=== PATIENT | male | born 1955 | race Caucasian/White ===

== ENCOUNTER 2017-05-16 11:40 | Emergency (ER) | payer OTHER ==
--- NOTE | 2017-05-16 12:21 | EDM.PDOC ---
ED HPI GENERAL MEDICAL PROBLEM - General Chief Complaint: Upper Extremity Injury/Pain Stated Complaint: LEFT SHOULDER PAIN Time Seen by Provider: 05/16/17 12:20 Source of Information: Reports: Patient History Limitations: Reports: No Limitations - History of Present Illness INITIAL COMMENTS - FREE TEXT/NARRATIVE: HISTORY AND PHYSICAL: History of present illness: Patient is a 61-year-old male who presents to the emergency room with complaints of muscular pain to the trapezius into the right shoulder. He states yesterday he was playing cards when he felt a sharp cramping pain which was alleviated with pressure on his hand. Does have a history of a torn rotator cuff which she normally receives cortisone injections for. He denies any recent injury or falls. Tried to get into Dr. Waylon Sanchez's clinic, but reports he is unable to get in for 2 weeks. Been using Tylenol, Motrin and Midol over-the- counter with minimal relief. Last saw Dr. Marta Good May 2016. Review of systems: As per history of present illness and below otherwise all systems reviewed and negative. Past medical history: As per history of present illness and as reviewed below otherwise noncontributory. Surgical history: As per history of present illness and as reviewed below otherwise noncontributory. Social history: No reported history of drug or alcohol abuse. Family history: As per history of present illness and as reviewed below otherwise noncontributory. Physical exam: General: Old developed and well-nourished 61-year-old male. Alert and oriented. Nontoxic appearing and in no acute distress. HEENT: Atraumatic, normocephalic, pupils reactive, negative for conjunctival pallor or scleral icterus, mucous membranes moist, throat clear, neck supple, nontender, trachea midline. Lungs: Clear to auscultation, breath sounds equal bilaterally, chest nontender. Heart: S1S2, regular rate and rhythm Abdomen: Soft, nondistended, nontender. Negative for masses or hepatosplenomegaly. Negative for costovertebral tenderness. Pelvis: Stable nontender. Genitourinary: Deferred. Rectal: Deferred. Extremities: Atraumatic, moves all extremities per self. All range of motion of the right shoulder with good strength. Strong radial pulses bilaterally. Skin intact, warm, dry. Discomfort to the right trapezius muscle into the posterior right shoulder. Neurovascular unremarkable. Neuro: Awake, alert, oriented. Cranial nerves II through XII unremarkable. Cerebellum unremarkable. Motor and sensory unremarkable throughout. Exam nonfocal. As patient has a known rotator cuff injury with no new falls/injury, an x-ray not be beneficial at this time. We did discuss the possibility of needing further imaging such as CT or MRI through orthopedics in the future. He voices understanding. Patient's pain sounds musculature in nature we will give Cataflam twice a day when necessary, dispense #20 no refill. Flexeril 10 mg twice a day when necessary, dispense #12, no refill. Medication education was discussed. Follow-up necessity was discussed as well. Patient voices understanding and is agreeable to plan of care. He denies any questions at this time. Diagnostics: [] Therapeutics: Ice, offered a sling Impression: #1 Muscular strain, right trapezius #2 History of rotator cuff tear, right shoulder Plan: 1. Please take your medications as directed. Flexeril may cause drowsiness do not take it while driving or needing to be functioning at work. Do not take any additional NSAID such as ibuprofen or Aleve while taking Cataflam. You may take Tylenol as needed for breakthrough pain. Rest, ice, elevate the extremity. 2. As we discussed comments imperative that he follow up with orthopedic provider for further management of your pain. 3. Return to the ED as needed and as discussed. Definitive disposition and diagnosis as appropriate pending reevaluation and review of above. Duration: Day(s):, Chronic Location: Reports: Upper Extremity, Right - Related Data Allergies Allergy/AdvReac Type Severity Reaction Status Date / Time No Known Allergies Allergy Verified 04/29/16 07:00 Home Meds: Home Meds Albuterol [Ventolin HFA] 2 puff ASDIRECTED 03/28/16 [History] Celecoxib [CeleBREX] 100 mg PO DAILY 03/28/16 [History] Diltiazem HCl [Cartia Xt] 180 mg PO DAILY 03/28/16 [History] Umeclidinium Brm/Vilanterol Tr [Anoro Ellipta 62.5-25 Mcg INH] 1 puff BUCCAL DAILY 03/28/16 [History] Fluticasone Propionate [Flovent HFA 220 MCG] 1 gm INH BID #1 inhaler 04/30/16 [ Rx] Prednisone [IJD: predniSONE] 40 mg PO WITHBREAKFAST 5 Days tab 04/30/16 [Rx] Past Medical History Cardiovascular History: Reports: Hypertension Respiratory History: Reports: COPD Other Musculoskeletal History: RIGHT SIDE MUSCLE PAIN Oncologic (Cancer) History: Reports: None - Infectious Disease History Infectious Disease History: Reports: Chicken Pox - Past Surgical History Other Cardiovascular Surgeries/Procedures: Pt stated he was diagnosed with HPN and on medication but said "I dont remember the name of the pill I'm taking but I take it everyday" Other Respiratory Surgeries/Procedures: Pt reported having had right lung surgery February 2015 Other Musculoskeletal Surgeries/Procedures:: Pt complains of sore right knee. Stated he also started to notice swelling of his both legs yesterday. He claimed to be on physical therapy for his back for 2 weeks now. last therapy was . Social & Family History - Family History Family Medical History: Noncontributory - Tobacco Use Smoking Status *Q: Current Every Day Smoker Years of Tobacco use: 47 Packs/Tins Daily: 3 Used Tobacco, but Quit: No Second Hand Smoke Exposure: Yes - Caffeine Use Caffeine Use: Reports: Coffee Caffeine Use Comment: 7-8drinks/day - Alcohol Use Days Per Week of Alcohol Use: 7 Number of Drinks Per Day: 6 Total Drinks Per Week: 42 - Recreational Drug Use Recreational Drug Use: No Review of Systems - Review of Systems Review Of Systems: ROS reveals no pertinent complaints other than HPI. ED EXAM, GENERAL - Physical Exam Exam: See Below (See dictation) Departure - Departure Time of Disposition: 12:42 Disposition: Home, Self-Care 01 Clinical Impression: Muscle strain, History of rotator cuff tear - Discharge Information Referrals: Waylon Sanchez MD [Primary Care Provider] - Forms: ED Department Discharge Additional Instructions: My general discharge The following information is given to patients seen in the emergency department who are being discharged to home. This information is to outline your options for follow-up care. We provide all patients seen in our emergency department with a follow-up referral. The need for follow-up, as well as the timing and circumstances, are variable depending upon the specifics of your emergency department visit. If you don't have a primary care physician on staff, we will provide you with a referral. We always advise you to contact your personal physician following an emergency department visit to inform them of the circumstance of the visit and for follow-up with them and/or the need for any referrals to a consulting specialist. The emergency department will also refer you to a specialist when appropriate. This referral assures that you have the opportunity for follow-up care with a specialist. All of these measure are taken in an effort to provide you with optimal care, which includes your follow-up. Under all circumstances we always encourage you to contact your private physician who remains a resource for coordinating your care. When calling for follow-up care, please make the office aware that this follow-up is from your recent emergency room visit. If for any reason you are refused follow-up, please contact the [facility] Emergency Department at and asked to speak to the emergency department charge nurse. [address] [address] [facility] Professional [facility] [address] [place] [address], [address] [place] [address] 1. Please take your medications as directed. Flexeril may cause drowsiness do not take it while driving or needing to be functioning at work. Do not take any additional NSAID such as ibuprofen or Aleve while taking Cataflam. You may take Tylenol as needed for breakthrough pain. Rest, ice, elevate the extremity. 2. As we discussed comments imperative that he follow up with orthopedic provider for further management of your pain. 3. Return to the ED as needed and as discussed.
[2017-05-16 12:53] VITALS: BP 157/76
== END 2017-05-16 12:53 | disposition home or self-care (01) ==
LOC: MW.ED 11:40
DX: S46.811A Strain of other muscles, fascia and tendons at shoulder and upper arm level, right arm, initial encounter (principal); S46.011A Strain of muscle(s) and tendon(s) of the rotator cuff of right shoulder, initial encounter; I10 Essential (primary) hypertension; J44.9 Chronic obstructive pulmonary disease, unspecified; F17.210 Nicotine dependence, cigarettes, uncomplicated; Z79.899 Other long term (current) drug therapy; X58.XXXA Exposure to other specified factors, initial encounter; Y93.89 Activity, other specified
CPT/HCPCS: 99283

== ENCOUNTER 2018-04-21 10:06 | Emergency (ER) | payer OTHER ==
[2018-04-21 10:16] VITALS: BP 178/89
--- NOTE | 2018-04-21 12:20 | CR ---
EXAMINATION: Thoracic and lumbar spine HISTORY: Back pain COMPARISON: None TECHNIQUE: AP and lateral views obtained of the thoracic and lumbar spine. FINDINGS: There is mild S-shaped curvature of the thoracolumbar spine. The vertebral body heights and disc spaces appear well-maintained. Mild marginal osteophyte formation is noted. SI joints are symmetric. Bone mineralization is normal. Mild vascular calcifications noted. Clips are noted projecting next to an a patchy right pulmonary opacity likely scarring. IMPRESSION: 1. Mild degenerative changes without acute findings.
[2018-04-21] MEDS ORDERED: Ketorolac 60 MG/2 ML SDV IM ONE (12:21)
--- NOTE | 2018-04-21 12:31 | EDM.PDOC ---
ED HPI GENERAL MEDICAL PROBLEM - General Chief Complaint: Back Pain or Injury Stated Complaint: SLIPPED ON ICE Time Seen by Provider: 04/21/18 12:00 Source of Information: Reports: Patient History Limitations: Reports: No Limitations - History of Present Illness INITIAL COMMENTS - FREE TEXT/NARRATIVE: Presents reporting back pain since a slip on the ice and fall one week ago. He states his feet came out from under him and he fell flat on his back. Since that time he has had pain in his mid and lower back. He has used Tylenol and a heating pad without palliation. The pain sometimes radiates to his right shoulder and neck area but not into the buttocks legs or feet. No saddle anesthesia, loss of bowel or bladder function. Pain is worsened by sitting and extended walking. Improves with laying on his stomach or supine. He has been walking working at his usual job at the [employer]. back Pain Score (Numeric/FACES): 7 - Related Data Allergies Allergy/AdvReac Type Severity Reaction Status Date / Time No Known Allergies Allergy Verified 04/21/18 10:13 Home Meds: Home Meds Albuterol [Ventolin HFA] 2 puff ASDIRECTED 03/28/16 [History] Umeclidinium Brm/Vilanterol Tr [Anoro Ellipta 62.5-25 MCG] 1 puff BUCCAL DAILY 03/28/16 [History] Albuterol/Ipratropium [DuoNeb 3.0-0.5 MG/3 ML] 3 ml INH ASDIRECTED PRN 02/22/18 [History] Diltiazem HCl [Dilt-Xr] 180 mg PO DAILY 02/22/18 [History] Cyclobenzaprine [Flexeril] 1 tab PO TID PRN #20 tab 04/21/18 [Rx] Diclofenac Sodium [Voltaren] 1 tab PO BIDMEALS PRN #20 tab.cr 04/21/18 [Rx] Past Medical History HEENT History: Reports: None Cardiovascular History: Reports: Hypertension Respiratory History: Reports: COPD Gastrointestinal History: Reports: None Genitourinary History: Reports: None Musculoskeletal History: Reports: Other (See Below) Other Musculoskeletal History: RIGHT SIDE MUSCLE PAIN Neurological History: Reports: None Psychiatric History: Reports: None Endocrine/Metabolic History: Reports: None Hematologic History: Reports: None Immunologic History: Reports: None Oncologic (Cancer) History: Reports: None Dermatologic History: Reports: None - Infectious Disease History Infectious Disease History: Reports: Chicken Pox - Past Surgical History Head Surgeries/Procedures: Reports: None HEENT Surgical History: Reports: None Cardiovascular Surgical History: Reports: Other (See Below) Other Cardiovascular Surgeries/Procedures: 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 Stated he also started to notice swelling of his both legs yesterday. He claimed to be on physical therapy for his back for 2 weeks now. last therapy was . Oncologic Surgical History: Reports: None Dermatological Surgical History: Reports: None Social & Family History - Family History Family Medical History: Noncontributory - Tobacco Use Smoking Status *Q: Current Every Day Smoker Years of Tobacco use: 48 Packs/Tins Daily: 0.9 - Caffeine Use Caffeine Use: Reports: Coffee Caffeine Use Comment: 7-8drinks/day - Recreational Drug Use Recreational Drug Use: No ED ROS GENERAL - Review of Systems Review Of Systems: ROS reveals no pertinent complaints other than HPI. ED EXAM,LOWER BACK PAIN/INJURY - Physical Exam Exam: See Below Exam Limited By: No Limitations General Appearance: Alert, No Apparent Distress Ears: Normal External Exam Nose: Normal Inspection Throat/Mouth: Normal Inspection Head: Atraumatic, Normocephalic Neck: Normal Inspection Respiratory/Chest: No Respiratory Distress, Lungs Clear, Normal Breath Sounds, Other (Cough, long history of heavy smoking) Cardiovascular: Regular Rate, Rhythm GI/Abdominal: Soft Back Exam: Other (No spinal or perispinal tenderness) Neurological: Alert, Normal Reflexes DTR - Lower Extremities: 2+: Knee (R), Knee (L) Psychiatric: Normal Affect, Normal Mood Skin Exam: Warm, Dry, Intact, Normal Color Course - Vital Signs Last Recorded V/S: Last Vital Signs Temp 36.1 C 04/21/18 10:14 Pulse 114 H 04/21/18 10:14 Resp 20 04/21/18 10:14 BP 178/89 H 04/21/18 10:14 Pulse Ox 92 L 04/21/18 10:14 Departure - Departure Time of Disposition: 12:44 Disposition: Home, Self-Care 01 Condition: Good Clinical Impression: Back injury - Discharge Information *PRESCRIPTION DRUG MONITORING PROGRAM REVIEWED*: Not Applicable *COPY OF PRESCRIPTION DRUG MONITORING REPORT IN PATIENT [place]: Not Applicable Referrals: PCP,Unknown [Primary Care Provider] - Waylon Sanchez MD [Physician] - Additional Instructions: 1. Diclofenac 75 mg twice daily as needed for back pain. As an alternative you may use ibuprofen 2-3 tabs every 8 hours or Aleve 2 tabs every 12 hours as needed for pain. 2. Flexeril 1 tab 3 times a day as needed for muscle spasm. No driving or operating machinery 3 warm or cold packs whichever feels best every 4 hours as needed 4. Follow-up with your primary care physician
== END 2018-04-21 13:00 | disposition home or self-care (01) ==
LOC: MW.ED 10:06
DX: S39.92XA Unspecified injury of lower back, initial encounter (principal); I10 Essential (primary) hypertension; J44.9 Chronic obstructive pulmonary disease, unspecified; F17.210 Nicotine dependence, cigarettes, uncomplicated; W00.0XXA Fall on same level due to ice and snow, initial encounter; Z79.899 Other long term (current) drug therapy
CPT/HCPCS: 72072; 72100; 96372; 99283; J1885

== ENCOUNTER 2018-12-01 10:24 | Emergency (ER) | payer OTHER ==
--- NOTE | 2018-12-01 10:37 | EDM.PDOC ---
ED HPI GENERAL MEDICAL PROBLEM - General Stated Complaint: PT FELL, RIGHT RIB PAIN Time Seen by Provider: 12/01/18 10:28 Source of Information: Reports: Patient History Limitations: Reports: No Limitations - History of Present Illness INITIAL COMMENTS - FREE TEXT/NARRATIVE: HISTORY AND PHYSICAL: History of present illness: Patient is a 63-year-old male presents to the ED today with concern of right- sided rib injury that occurred 5 days ago. Patient states he was in the shower and just got a new kitten who got into the bathroom and was staying in the garbage. Patient states he tried to hurt out of the shower and slipped and fell onto his right side of his ribs. Patient states he's had a vague discomfort since the fall but has gradually been more sore. Patient denies hitting his head or loss of consciousness. Patient denies any other symptoms or concerns at this time. Patient denies fever, chills, chest pain, shortness of breath, or cough. Denies headache, neck stiff ness, change in vision, syncope, or near syncope. Denies nausea, vomiting, abdominal pain, diarrhea, constipation, or dysuria. Has not noted any blood in urine or stool. Patient has been eating and drinking appropriately. Review of systems: As per history of present illness and below otherwise all systems reviewed and negative. Past medical history: As per history of present illness and as reviewed below otherwise noncontributory. Surgical history: As per history of present illness and as reviewed below otherwise noncontributory. Social history: See social history for further information Family history: As per history of present illness and as reviewed below otherwise noncontributory. Physical exam: General: Patient is alert, oriented, and in no acute distress. Patient sitting comfortably on exam table. HEENT: Atraumatic, normocephalic, pupils equal and reactive bilaterally, negative for conjunctival pallor or scleral icterus, mucous membranes moist, TMs normal bilaterally, throat clear, neck supple, nontender, trachea midline. No drooling or trismus noted. No meningeal signs. No hot potato voice noted. Lungs: Clear to auscultation, breath sounds equal bilaterally. Pain with palpation over ribs 6 and 7 on the right side. Scarring consistent with surgical history. Heart: S1S2, regular rate and rhythm without overt murmur Abdomen: Soft, nondistended, nontender. Negative for masses or hepatosplenomegaly. Negative for costovertebral tenderness. Pelvis: Stable nontender. Genitourinary: Deferred. Rectal: Deferred. Skin: Intact, warm, dry. No lesions or rashes noted. Extremities: Atraumatic, negative for cords or calf pain. Neurovascular unremarkable. Neuro: Awake, alert, oriented. Cranial nerves II through XII unremarkable. Cerebellum unremarkable. Motor and sensory unremarkable throughout. Exam nonfocal. Notes: EKG re viewed with Dr. De La Paz. Discussed the importance for follow-up with primary care provider. Voices understanding and is agreeable to plan of care. Denies any further questions or concerns at this time. Diagnostics: Chest with Rib XR, CBC, CMP, UA, EKG, troponin Therapeutics: None Prescription: Diclofenac Impression: Right-sided rib injury Plan: 1. Rest, ice and or heat the affected area/ You can apply ice and or heat 15 minutes on, 15 minutes off. 2. Tylenol and/or Ibuprofen as directed for pain management or discomfort. 3. Follow up with the primary care provider as discussed. Return to the ED as needed and as discussed. Definitive disposition and diagnosis as appropriate pending reevaluation and review of above. Right Middle Abdominal Pain Score (Numeric/FACES): 8 - Related Data Allergies Allergy/AdvReac Type Severity Reaction Status Date / Time No Known Allergies Allergy Verified 12/01/18 10:46 Home Meds: Home Meds Albuterol [Ventolin HFA] 2 puff ASDIRECTED 03/28/16 [History] Umeclidinium Brm/Vilanterol Tr [Anoro Ellipta 62.5-25 MCG] 1 puff BUCCAL DAILY 03/28/16 [History] Albuterol/Ipratropium [DuoNeb 3.0-0.5 MG/3 ML] 3 ml INH ASDIRECTED PRN 02/22/18 [History] Diltiazem HCl [Dilt-Xr] 180 mg PO DAILY 02/22/18 [History] Diclofenac Sodium [Voltaren] 75 mg PO BIDMEALS PRN #15 tab.cr 12/01/18 [Rx] Past Medical History HEENT History: Reports: None Cardiovascular History: Reports: Hypertension Respiratory History: Reports: COPD Gastrointestinal History: Reports: None Genitourinary History: Reports: None Musculoskeletal History: Reports: Other (See Below) Other Musculoskeletal History: RIGHT SIDE MUSCLE PAIN Neurological History: Reports: None Psychiatric History: Reports: None Endocrine/Metabolic History: Reports: None Hematologic History: Reports: None Immunologic History: Reports: None Oncologic (Cancer) History: Reports: None Dermatologic History: Reports: None - Infectious Disease History Infectious Disease History: Reports: Chicken Pox - Past Surgical History Head Surgeries/Procedures: Reports: None HEENT Surgical History: Reports: None Cardiovascular Surgical History: Reports: Other (See Below) Other Cardiovascular Surgeries/Procedures: 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 Stated he also started to notice swelling of his both legs yesterday. He claimed to be on physical therapy for his back for 2 weeks now. last therapy was . Oncologic Surgical History: Reports: None Dermatological Surgical History: Reports: None Social & Family History - Family History Family Medical History: Noncontributory - Caffeine Use Caffeine Use: Reports: Coffee Caffeine Use Comment: 7-8drinks/day ED ROS GENERAL - Review of Systems Review Of Systems: ROS reveals no pertinent complaints other than HPI. ED EXAM, GENERAL - Physical Exam Exam: See Below (see dictation) Course - Vital Signs Last Recorded V/S: Last Vital Signs Temp 36.7 C 12/01/18 10:44 Pulse 108 H 12/01/18 10:44 Resp 20 12/01/18 10:44 BP 140/82 12/01/18 10:44 Pulse Ox - Orders/Labs/Meds Orders: Active Orders 24 hr Category Date Time Status EKG Documentation Completion [RC] STAT Care 12/01/18 10:55 Active Labs: Laboratory Tests 12/01/18 12/01/18 12/01/18 Range/Units 11:07 11:07 11:10 WBC 11.15 H (4.0-11.0) K/uL RBC 4.80 (4.50-5.90) M/uL Hgb 16.4 (13.0-17.0) g/dL Hct 46.8 (38.0-50.0) % MCV 97.5 (80.0-98.0) fL MCH 34.2 H (27.0-32.0) pg MCHC 35.0 (31.0-37.0) g/dL RDW Std Deviation 49.5 (28.0-62.0) fl RDW Coeff of Rocio 14 (11.0-15.0) % Plt Count 333 (150-400) K/uL MPV 10.60 (7.40-12.00) fL Neut % (Auto) 84.3 H (48.0-80.0) % Lymph % (Auto) 8.8 L (16.0-40.0) % [place] % (Auto) 6.2 (0.0-15.0) % Eos % (Auto) 0.1 (0.0-7.0) % Baso % (Auto) 0.6 (0.0-1.5) % Neut # (Auto) 9.4 H (1.4-5.7) K/uL Lymph # (Auto) 1.0 (0.6-2.4) K/uL [place] # (Auto) 0.7 (0.0-0.8) K/uL Eos # (Auto) 0.0 (0.0-0.7) K/uL Baso # (Auto) 0.1 (0.0-0.1) K/uL Nucleated RBC % 0.0 /100WBC Nucleated RBCs # 0 K/uL Sodium 140 (136-148) mmol/L Potassium 5.1 (3.5-5.1) mmol/L Chloride 103 (98-107) mmol/L Carbon Dioxide 26.8 (21.0-32.0) mmol/L BUN 14 (7.0-18.0) mg/dL Creatinine 1.0 (0.8-1.3) mg/dL Est Cr Clr Drug Dosing 78.07 mL/min Estimated GFR (MDRD) > 60.0 ml/min Glucose 137 H (74-106) mg/dL Calcium 10.0 (8.5-10.1) mg/dL Total Bilirubin 0.4 (0.2-1.0) mg/dL AST 42 H (15-37) IU/L ALT 45 (14-63) IU/L Alkaline Phosphatase 81 (46-116) U/L Troponin I < 0.050 (0.000-0.056) ng/mL Total Protein 7.4 (6.4-8.2) g/dL Albumin 3.6 (3.4-5.0) g/dL Globulin 3.8 (2.6-4.0) g/dL Albumin/Globulin Ratio 0.9 (0.9-1.6) Urine Color YELLOW Urine Appearance CLEAR Urine pH 5.0 (5.0-8.0) Ur Specific [place] 1.025 (1.001-1.035) Urine Protein TRACE H (NEGATIVE) mg/dL Urine Glucose (UA) NEGATIVE (NEGATIVE) mg/dL Urine Ketones 15 H (NEGATIVE) mg/dL Urine Occult Blood NEGATIVE (NEGATIVE) Urine Nitrite NEGATIVE (NEGATIVE) Urine Bilirubin SMALL H (NEGATIVE) Urine Ictotest NEGATIVE Urine Urobilinogen 0.2 (<2.0) EU/dL Ur Leukocyte Esterase NEGATIVE (NEGATIVE) Urine RBC 0-1 (0-2/HPF) Urine WBC 0-3 (0-5/HPF) Ur Epithelial Cells RARE (NONE-FEW) Urine Bacteria FEW (NEGATIVE) Urine Mucus LIGHT (NONE-MOD) Departure - Departure Time of Disposition: 12:59 Disposition: Home, Self-Care 01 Clinical Impression: Rib injury - Discharge Information Prescriptions: Diclofenac Sodium [Voltaren] 75 mg PO BIDMEALS PRN #15 tab.cr PRN Reason: Pain Instructions: Rib Contusion Referrals: Waylon Sanchez MD [Primary Care Provider] - Forms: ED Department Discharge Additional Instructions: The following information is given to patients seen in the emergency department who are being discharged to home. This information is to outline your options for follow-up care. We provide all patients seen in our emergency department with a follow-up referral. The need for follow-up, as well as the timing and circumstances, are variable depending upon the specifics of your emergency department visit. If you don't have a primary care physician on staff, we will provide you with a referral. We always advise you to contact your personal physician following an emergency department visit to inform them of the circumstance of the visit and for follow-up with them and/or the need for any referrals to a consulting specialist. The emergency department will also refer you to a specialist when appropriate. This referral assures that you have the opportunity for follow-up care with a specialist. All of these measure are taken in an effort to provide you with optimal care, which includes your follow-up. Under all circumstances we always encourage you to contact your private physician who remains a resource for coordinating your care. When calling for follow-up care, please make the office aware that this follow-up is from your recent emergency room visit. If for any reason you are refused follow-up, please contact the [facility] Emergency Department at and asked to speak to the emergency department charge nurse. [facility] [address] [place] [id number] [place] [address] 1. Rest, ice and or heat the affected area. You can apply ice and or heat 15 minutes on, 15 minutes off. 2. Tylenol as directed for pain management or discomfort. Take medication as prescribed. 3. Follow up with the primary care provider as discussed. Return to the ED as needed and as discussed. - My Orders Last 24 Hours: My Active Orders 12/01/18 10:55 EKG Documentation Completion [RC] STAT - Assessment/Plan Last 24 Hours: My Active Orders 12/01/18 10:55 EKG Documentation Completion [RC] STAT
[2018-12-01 11:42] LABS: BLOOD UREA NITROGEN,BUN 14 mg/dL (7.0-18.0); CARBON DIOXIDE,CO2 26.8 mmol/L (21.0-32.0); CHLORIDE,CL 103 mmol/L (98-107); GLUCOSE RANDOM 137 mg/dL (74-106); POTASSIUM,K 5.1 mmol/L (3.5-5.1); SODIUM,NA 140 mmol/L (136-148)
--- NOTE | 2018-12-01 13:38 | CR ---
INDICATION: Trauma. COMPARISON: Chest radiograph April 29, 2016. TECHNIQUE: Four view study chest and right rib cage. FINDINGS: Normal Sized cardiac silhouette . No evidence of acute pneumonic infiltrates or CHF. No pneumothorax or pleural effusion. Postop changes right upper lung with surgical clips. No evidence of fracture involving the right ribcage. No pneumothorax or pleural effusion. No interval change when compared to March 2016. IMPRESSION: 1. No acute pathology. 2. Postop changes right upper lung. 3. No fracture involving the right rib cage. 4. No pneumothorax or pleural effusion. Dictated by Hernan Torrez MD @ Dec 01 2018 1:33PM Signed by Dr. Hernan Torrez @ Dec 01 2018 1:36PM
[2018-12-01 20:17] VITALS: BP 163/85
== END 2018-12-01 13:10 | disposition home or self-care (01) ==
LOC: MW.ED 10:24
DX: S29.9XXA Unspecified injury of thorax, initial encounter (principal); I10 Essential (primary) hypertension; J44.9 Chronic obstructive pulmonary disease, unspecified; Z79.899 Other long term (current) drug therapy; W01.0XXA Fall on same level from slipping, tripping and stumbling without subsequent striking against object, initial encounter
CPT/HCPCS: 36415; 71101-26-RT; 71101-RT; 80053; 81001; 84484; 85025; 93005; 99284-25

== ENCOUNTER 2019-06-14 10:38 | Emergency (ER) | payer OTHER ==
[2019-06-14] MEDS ORDERED: methylPREDNISolone Sodium Succinate 125 MG/2 ML SDV IVPUSH ONE (13:26)
[2019-06-14] MEDS ORDERED: Sodium Chloride 0.9% 1,000 ML IV ONE (13:26)
[2019-06-14] MEDS ORDERED: Albuterol/Ipratropium 3.0-0.5 MG/3 ML Neb Soln NEB ONE ×2 (13:27→13:46)
[2019-06-14] MEDS ORDERED: Magnesium Sulfate (4.06 MEQ/ML) 5 GM/10 ML SDV IV ONE (13:29)
--- NOTE | 2019-06-14 13:34 | EDM.PDOC ---
ED HPI GENERAL MEDICAL PROBLEM - General Chief Complaint: Respiratory Problem Stated Complaint: SOB Time Seen by Provider: 06/14/19 13:10 Source of Information: Reports: Patient History Limitations: Reports: No Limitations - History of Present Illness INITIAL COMMENTS - FREE TEXT/NARRATIVE: This 63 year old male is admitted to the ED with a chief complaint of SOB with intermittent wheezing for the past 4-5 days. He also complains of a non- productive cough for several days. He states that he continues to smoke cigarettes. He states that his home COPD medications is not working. He denies any chest pain, sweating, nausea or vomiting or pain into his upper extremities or jaw. He denies any other symptoms at this time. Onset: Gradual (over the past 4-5 days. He has a history of COPD) Duration: Day(s): (4-5 days) Location: Reports: Chest Severity: Mild (to moderate SOB) - Related Data Allergies Allergy/AdvReac Type Severity Reaction Status Date / Time No Known Allergies Allergy Verified 12/01/18 10:46 Home Meds: Home Meds Albuterol Sulfate [Proair Digihaler] 06/14/19 [History] Diltiazem HCl [Dilt-Xr] 06/14/19 [History] Umeclidinium Brm/Vilanterol Tr [Anoro Ellipta 62.5-25 MCG] 06/14/19 [History] buPROPion [Wellbutrin SR] 06/14/19 [History] Past Medical History HEENT History: Reports: None Cardiovascular History: Reports: Hypertension Respiratory History: Reports: COPD Gastrointestinal History: Reports: None Genitourinary History: Reports: None Musculoskeletal History: Reports: Other (See Below) Other Musculoskeletal History: RIGHT SIDE MUSCLE PAIN Neurological History: Reports: None Psychiatric History: Reports: None Endocrine/Metabolic History: Reports: None Hematologic History: Reports: None Immunologic History: Reports: None Oncologic (Cancer) History: Reports: None Dermatologic History: Reports: None - Infectious Disease History Infectious Disease History: Reports: Chicken Pox - Past Surgical History Head Surgeries/Procedures: Reports: None HEENT Surgical History: Reports: None Cardiovascular Surgical History: Reports: Other (See Below) Other Cardiovascular Surgeries/Procedures: 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 Stated he also started to notice swelling of his both legs yesterday. He claimed to be on physical therapy for his back for 2 weeks now. last therapy was . Oncologic Surgical History: Reports: None Dermatological Surgical History: Reports: None Social & Family History - Family History Family Medical History: Noncontributory - Tobacco Use Smoking Status *Q: Current Every Day Smoker Years of Tobacco use: 45 Packs/Tins Daily: 1 - Caffeine Use Caffeine Use: Reports: Coffee Caffeine Use Comment: 7-8drinks/day - Recreational Drug Use Recreational Drug Use: No ED ROS GENERAL - Review of Systems Review Of Systems: See Below Constitutional: Reports: Weakness, Fatigue HEENT: Reports: No Symptoms Respiratory: Reports: Shortness of Breath, Wheezing (mild) Cardiovascular: Reports: No Symptoms Endocrine: Reports: No Symptoms GI/Abdominal: Reports: No Symptoms : Reports: No Symptoms Musculoskeletal: Reports: No Symptoms Skin: Reports: No Symptoms Neurological: Reports: No Symptoms ED EXAM, GENERAL - Physical Exam Exam: See Below Exam Limited By: No Limitations General Appearance: Alert, WD/WN, Mild Distress (respiratory) Ears: Normal External Exam, Normal Canal, Hearing Grossly Normal, Normal TMs Ear Exam: Bilateral Ear: Auricle Normal, Canal Normal, TM normal Nose: Normal Inspection, Normal Mucosa, No Blood Throat/Mouth: Normal Inspection, Normal Lips, Normal Teeth, Normal Gums, Normal Oropharynx, Normal Voice, No Airway Compromise Head: Atraumatic, Normocephalic Neck: Normal Inspection, Supple, Non-Tender, Full Range of Motion Respiratory/Chest: Wheezing (mild in the upper lobes only), Prolonged Expiration (noted throughout), Other (mild respiratory distress) Cardiovascular: Normal Peripheral Pulses, Regular Rate, Rhythm, No Edema, No Gallop, No JVD, No Murmur, No Rub GI/Abdominal: Normal Bowel Sounds, Soft, Non-Tender, No Organomegaly, No Distention, No Abnormal Bruit, No Mass (Male) Exam: Deferred Rectal (Males) Exam: Deferred Back Exam: Normal Inspection Extremities: Normal Inspection, Normal Range of Motion, Normal Capillary Refill. No: Adilson's Sign Neurological: Alert, Oriented, CN II-XII Intact, Normal Reflexes, No Motor/ Sensory Deficits Psychiatric: Normal Affect, Normal Mood Skin Exam: Warm, Dry, Intact, Normal Color, No Rash Course - Vital Signs Text/Narrative:: After the breathing treatment and PO Prednisone 20mg, he felt much better and wanted to go home. I re-examined him and his lungs are now clear with a normal expiratory phase. I feel that it is ok to discharge. He agrees with the discharge plan. He refused IV's as well as Solu-Medrol 125mg. He did get Prednisone 20mg. His chest X-Ray is negative and all lab test are unremarkable. Last Recorded V/S: Last Vital Signs Temp 97.3 F 06/14/19 11:25 Pulse 96 06/14/19 12:45 Resp 20 06/14/19 12:45 BP 120/82 06/14/19 12:45 Pulse Ox 95 06/14/19 12:45 - Orders/Labs/Meds Orders: Active Orders 24 hr Category Date Time Status EKG Documentation Completion [RC] STAT Care 06/14/19 12:33 Active RT Aerosol Therapy [RC] ASDIRECTED Care 06/14/19 13:28 Active RT Aerosol Therapy [RC] ASDIRECTED Care 06/14/19 13:46 Active Isolation [COMM] Routine Oth 06/14/19 11:02 Active Labs: Laboratory Tests 06/14/19 06/14/19 Range/Units 12:44 12:44 WBC 10.87 (4.0-11.0) K/uL RBC 4.86 (4.50-5.90) M/uL Hgb 16.2 (13.0-17.0) g/dL Hct 47.8 (38.0-50.0) % MCV 98.4 H (80.0-98.0) fL MCH 33.3 H (27.0-32.0) pg MCHC 33.9 (31.0-37.0) g/dL RDW Std Deviation 49.0 (28.0-62.0) fl RDW Coeff of Rocio 14 (11.0-15.0) % Plt Count 288 (150-400) K/uL MPV 10.50 (7.40-12.00) fL Neut % (Auto) 75.5 (48.0-80.0) % Lymph % (Auto) 13.4 L (16.0-40.0) % [place] % (Auto) 9.9 (0.0-15.0) % Eos % (Auto) 0.6 (0.0-7.0) % Baso % (Auto) 0.6 (0.0-1.5) % Neut # (Auto) 8.2 H (1.4-5.7) K/uL Lymph # (Auto) 1.5 (0.6-2.4) K/uL [place] # (Auto) 1.1 H (0.0-0.8) K/uL Eos # (Auto) 0.1 (0.0-0.7) K/uL Baso # (Auto) 0.1 (0.0-0.1) K/uL Nucleated RBC % 0.0 /100WBC Nucleated RBCs # 0 K/uL Sodium 143 (136-148) mmol/L Potassium 4.1 (3.5-5.1) mmol/L Chloride 106 (98-107) mmol/L Carbon Dioxide 28.5 (21.0-32.0) mmol/L BUN 15 (7.0-18.0) mg/dL Creatinine 0.8 (0.8-1.3) mg/dL Est Cr Clr Drug Dosing 97.59 mL/min Estimated GFR (MDRD) > 60.0 ml/min Glucose 142 H (74-106) mg/dL Calcium 9.6 (8.5-10.1) mg/dL Total Bilirubin 0.4 (0.2-1.0) mg/dL AST 20 (15-37) IU/L ALT 22 (14-63) IU/L Alkaline Phosphatase 83 (46-116) U/L Total Protein 7.5 (6.4-8.2) g/dL Albumin 3.6 (3.4-5.0) g/dL Globulin 3.9 (2.6-4.0) g/dL Albumin/Globulin Ratio 0.9 (0.9-1.6) Meds: Medications Discontinued Medications Generic Name Dose Route Start Last Admin Trade Name Freq PRN Reason Stop Dose Admin Albuterol/Ipratropium 3 ml 06/14/19 13:27 06/14/19 13:45 Duoneb 3.0-0.5 Mg/3 Ml NEB 06/14/19 13:28 3 ml ONETIME ONE Administration Albuterol/Ipratropium 3 ml 06/14/19 13:46 06/14/19 13:48 Duoneb 3.0-0.5 Mg/3 Ml NEB 06/14/19 13:47 3 ml ONETIME ONE Administration Sodium Chloride 1,000 mls @ 1,000 mls/hr 06/14/19 13:26 Normal Saline IV 06/14/19 14:25 .Bolus ONE Magnesium Sulfate 1 gm/ Premix 25 mls @ 25 mls/hr 06/14/19 14:00 IV 06/14/19 14:59 ONETIME ONE Methylprednisolone Sodium Succinate 125 mg 06/14/19 13:26 Solu-Medrol IVPUSH 06/14/19 13:27 ONETIME ONE Prednisone 20 mg 06/14/19 14:06 Prednisone PO 06/14/19 14:07 ONETIME ONE Departure - Departure Time of Disposition: 14:15 Disposition: Home, Self-Care 01 Condition: Good Clinical Impression: COPD exacerbation - Discharge Information *PRESCRIPTION DRUG MONITORING PROGRAM REVIEWED*: Yes *COPY OF PRESCRIPTION DRUG MONITORING REPORT IN PATIENT FRANCISCO: Yes Referrals: Waylon Sanchez MD [Primary Care Provider] - Forms: ED Department Discharge, ED Return to Work/School Form Additional Instructions: Take all medications as directed. Follow up with your PCP in the next two to four days. Stop smoking it is killing you. Drink plenty of clear liquids for the next 24-48 hours. Rest for the next 24 hours. No work for three days. Return to the ED if your condition gets worse or should you have any questions or concerns. The following information is given to patients seen in the emergency department who are being discharged to home. This information is to outline your options for follow-up care. We provide all patients seen in our emergency department with a follow-up referral. The need for follow-up, as well as the timing and circumstances, are variable depending upon the specifics of your emergency department visit. If you don't have a primary care physician on staff, we will provide you with a referral. We always advise you to contact your personal physician following an emergency department visit to inform them of the circumstance of the visit and for follow-up with them and/or the need for any referrals to a consulting specialist. The emergency department will also refer you to a specialist when appropriate. This referral assures that you have the opportunity for follow-up care with a specialist. All of these measure are taken in an effort to provide you with optimal care, which includes your follow-up. Under all circumstances we always encourage you to contact your private physician who remains a resource for coordinating your care. When calling for follow-up care, please make the office aware that this follow-up is from your recent emergency room visit. If for any reason you are refused follow-up, please contact the Emergency Department at and asked to speak to the emergency department charge nurse. Sepsis Event Note - Evaluation Sepsis Screening Result: No Definite Risk - Focused Exam Vital Signs: Vital Signs Temp Pulse Resp BP Pulse Ox 06/14/19 12:45 96 20 120/82 95 06/14/19 11:25 97.3 F 98 16 169/78 H 95 Date Exam was Performed: 06/14/19 Time Exam was Performed: 14:09 - My Orders Last 24 Hours: My Active Orders 06/14/19 13:28 RT Aerosol Therapy [RC] ASDIRECTED 06/14/19 13:46 RT Aerosol Therapy [RC] ASDIRECTED - Assessment/Plan Last 24 Hours: My Active Orders 06/14/19 13:28 RT Aerosol Therapy [RC] ASDIRECTED 06/14/19 13:46 RT Aerosol Therapy [RC] ASDIRECTED
[2019-06-14 13:37] LABS: BLOOD UREA NITROGEN,BUN 15 mg/dL (7.0-18.0); CARBON DIOXIDE,CO2 28.5 mmol/L (21.0-32.0); CHLORIDE,CL 106 mmol/L (98-107); GLUCOSE RANDOM 142 mg/dL (74-106); POTASSIUM,K 4.1 mmol/L (3.5-5.1); SODIUM,NA 143 mmol/L (136-148)
--- NOTE | 2019-06-14 13:47 | CR ---
Chest: 2 views of the chest were obtained. Comparison: Prior chest x-ray of 04/29/16. Scarring is noted within the right upper lung which is stable. Lung markings are mildly increased which also appear stable. No acute parenchymal change is appreciated. Lungs are hyperinflated compatible with emphysematous change. Bony structures are within normal limits for the patient's age. Impression: 1. Chronic change as noted above. 2. Nothing acute is definitely appreciated. Diagnostic code #2 Study was dictated in MDT
[2019-06-14] MEDS ORDERED: Magnesium Sulfate/Water 1 GM in Premix Bag 1 BAG IV ONE (14:00)
[2019-06-14] MEDS ORDERED: predniSONE 20 MG Tab PO ONE (14:06)
[2019-06-14 14:42] VITALS: BP 166/79; PULSE 100
== END 2019-06-14 14:30 | disposition home or self-care (01) ==
LOC: MW.ED 10:38
DX: J44.1 Chronic obstructive pulmonary disease with (acute) exacerbation (principal); I10 Essential (primary) hypertension; F17.210 Nicotine dependence, cigarettes, uncomplicated
CPT/HCPCS: 36415; 71046; 80053; 85025; 87804; 93005; 94640; 99285; A9270; J7620-GY

== ENCOUNTER 2022-02-02 02:33 | Emergency (ER) | payer MEDICARE, OTHER ==
[2022-02-02] MEDS ORDERED: Sodium Chloride 0.9% 10 ML Syringe FLUSH PRN (02:41)
[2022-02-02] MEDS ORDERED: Sodium Chloride 0.9% 2.5 ML Syringe FLUSH PRN (02:41)
[2022-02-02] MEDS ORDERED: Sodium Chloride 0.9% 1,000 ML IV ONE (02:41)
[2022-02-02 02:58] VITALS: PULSE 85
[2022-02-02] MEDS ORDERED: LORazepam 2 MG/ML SDV IVPUSH ONE (03:06)
[2022-02-02 03:36] LABS: CARBON DIOXIDE,CO2 26.5 mmol/L (21.0-32.0); POTASSIUM,K 4.3 mmol/L (3.5-5.1)
[2022-02-02 03:54] VITALS: BP 144/75
== END 2022-02-02 03:59 | disposition home or self-care (01) ==
LOC: MW.ED 02:33
DX: G47.00 Insomnia, unspecified (principal); J44.9 Chronic obstructive pulmonary disease, unspecified; I10 Essential (primary) hypertension
CPT/HCPCS: 36415; 71045; 80053; 84443; 84484; 85025; 93005; 96361; 96374; 99284; J2060; J3490; J7030

== ENCOUNTER 2022-08-05 09:15 | Emergency (ER) | payer MEDICARE, OTHER ==
[2022-08-05 09:21] VITALS: BP 131/58; PULSE 99
== END 2022-08-05 09:51 | disposition home or self-care (01) ==
LOC: MW.ED 09:15
DX: M54.41 Lumbago with sciatica, right side (principal); E78.00 Pure hypercholesterolemia, unspecified; I10 Essential (primary) hypertension; J44.9 Chronic obstructive pulmonary disease, unspecified; Z79.82 Long term (current) use of aspirin; Z79.899 Other long term (current) drug therapy; Z79.02 Long term (current) use of antithrombotics/antiplatelets
CPT/HCPCS: 99283

== ENCOUNTER 2022-10-10 20:04 | Inpatient (IN) | payer MEDICARE, OTHER ==
[2022-10-10] MEDS ORDERED: Sodium Chloride 0.9% 2.5 ML Syringe FLUSH PRN ×2 (20:14→21:45)
[2022-10-10] MEDS ORDERED: cefTRIAXone 1 GM in Sodium Chloride 0.9% 50 ML IV ONE (20:14)
[2022-10-10] MEDS ORDERED: Sodium Chloride 0.9% 10 ML Syringe FLUSH PRN ×2 (20:14→21:45)
[2022-10-10] MEDS ORDERED: Albuterol/Ipratropium 3.0-0.5 MG/3 ML Neb Soln NEB ONE (20:15)
[2022-10-10] MEDS ORDERED: methylPREDNISolone Sodium Succinate 125 MG/2 ML SDV IVPUSH ONE (20:16)
[2022-10-10 20:39] LABS: BASOPHILS ABSOLUTE AUTO 0.1 K/uL (0.0-0.1); BASOPHILS PERCENT AUTO 0.6 % (0.0-1.5); EOSINOPHILS ABSOLUTE AUTO 0.3 K/uL (0.0-0.7); EOSINOPHILS PERCENT AUTO 2.6 % (0.0-7.0); HEMATOCRIT 37.7 % (38.0-50.0); HEMOGLOBIN 13.4 g/dL (13.0-17.0); LYMPHOCYTES ABSOLUTE AUTO 1.8 K/uL (0.6-2.4); LYMPHOCYTES PERCENT AUTO 15.9 % (16.0-40.0); MEAN CORPUSCULAR HEMOGLOBIN 34.3 pg (27.0-32.0); MEAN CORPUSCULAR HGB CONC 35.5 g/dL (31.0-37.0); MEAN CORPUSCULAR VOLUME 96.4 fL (80.0-98.0); MONOCYTES ABSOLUTE AUTO 1.3 K/uL (0.0-0.8); MONOCYTES PERCENT AUTO 11.9 % (0.0-15.0); NEUTROPHILS ABSOLUTE AUTO 7.7 K/uL (1.4-5.7); NRBC ABSOLUTE 0 K/uL; PLATELET COUNT,PLT 456 K/uL (150-400); RED BLOOD CELL COUNT 3.91 M/uL (4.50-5.90); WHITE BLOOD CELL COUNT,WBC 11.13 K/uL (4.0-11.0)
[2022-10-10 21:03] LABS: INR 0.95 (0.86-1.11)
[2022-10-10 21:20] LABS: A/G RATIO 0.9 (0.9-1.6); ALBUMIN 3.3 g/dL (3.4-5.0); BILIRUBIN TOTAL 0.3 mg/dL (0.2-1.0); CALCIUM 8.4 mg/dL (8.5-10.1); CARBON DIOXIDE,CO2 25.8 mmol/L (21.0-32.0); EST CRCL DRUG DOSING (CG) 75.03 mL/min; POTASSIUM,K 4.2 mmol/L (3.5-5.1); PROTEIN TOTAL,TP 6.8 g/dL (6.4-8.2)
[2022-10-10 21:23] LABS: LACTIC ACID 2.1 mmol/L (0.4-2.0)
[2022-10-10] MEDS ORDERED: Polyethylene Glycol 3350 Powder 17 GM Packet PO PRN (21:45)
[2022-10-10] MEDS ORDERED: Acetaminophen 325 MG Tab PO PRN (21:45)
[2022-10-10] MEDS ORDERED: Albuterol/Ipratropium 3.0-0.5 MG/3 ML Neb Soln NEB PRN (21:45)
[2022-10-10] MEDS ORDERED: Ondansetron 4 MG/2 ML SDV IVPUSH PRN (21:45)
[2022-10-10] MEDS ORDERED: Iopamidol 755 MG/ML 500 ML Multipack Bottle IVPUSH ONE (21:51)
[2022-10-10] MEDS ORDERED: LORazepam 1 MG Tab PO PRN (21:55)
[2022-10-10] MEDS: Azithromycin 500 MG in Sodium Chloride 0.9% 250 ML IV SCH (22:57)
[2022-10-10 23:25] LABS: APPEARANCE,URINE CLEAR; BILIRUBIN,URINE NEGATIVE (NEGATIVE); COLOR,URINE YELLOW; GLUCOSE,URINE NEGATIVE (NEGATIVE); KETONES,URINE NEGATIVE (NEGATIVE); LEUKOCYTE ESTERASE,URINE NEGATIVE (NEGATIVE); NITRITE,URINE NEGATIVE (NEGATIVE); OCCULT BLOOD,URINE NEGATIVE (NEGATIVE); PROTEIN,URINE NEGATIVE (NEGATIVE); UROBILINOGEN,URINE 0.2 EU/dL (<2.0)
[2022-10-10 23:40] LABS: AMPHETAMINES SCREEN, URINE NEGATIVE (CUTOFF=500); BARBITURATE SCREEN,URINE NEGATIVE (CUTOFF=200); BENZODIAZEPINES SCREEN,URINE NEGATIVE (CUTOFF=150); BUPRENORPHINE SCREEN,URINE NEGATIVE (CUTOFF=10); METHADONE SCREEN, URINE NEGATIVE (CUTOFF=200); METHAMPHETAMINES SCREEN, URINE NEGATIVE (CUTOFF=500); OXYCODONE SCREEN,URINE NEGATIVE (CUT0FF=100); PCP SCREEN,URINE NEGATIVE (CUTOFF=25); PROPOXYPHENE SCREEN,URINE NEGATIVE (CUTOFF=300); THC SCREEN,URINE 20 NG/ML NEGATIVE (CUTOFF=50)
[2022-10-10] MEDS: Albuterol/Ipratropium 3.0-0.5 MG/3 ML Neb Soln NEB SCH (23:43)
[2022-10-11 05:57] LABS: HEMOGLOBIN 12.2 g/dL (13.0-17.0); MEAN CORPUSCULAR HEMOGLOBIN 33.1 pg (27.0-32.0); MEAN CORPUSCULAR HGB CONC 33.9 g/dL (31.0-37.0); MEAN CORPUSCULAR VOLUME 97.6 fL (80.0-98.0); MEAN PLATELET VOLUME 9.3 fL (7.40-12.00); RED BLOOD CELL COUNT 3.69 M/uL (4.50-5.90); WHITE BLOOD CELL COUNT,WBC 8.89 K/uL (4.0-11.0)
[2022-10-11 06:16] LABS: CALCIUM 8.1 mg/dL (8.5-10.1); CARBON DIOXIDE,CO2 25.5 mmol/L (21.0-32.0); EST CRCL DRUG DOSING (CG) 75.03 mL/min; POTASSIUM,K 4.8 mmol/L (3.5-5.1)
[2022-10-11] MEDS: Albuterol/Ipratropium 3.0-0.5 MG/3 ML Neb Soln NEB SCH ×4 (07:00→23:12)
[2022-10-11] MEDS: Losartan 50 MG Tab PO SCH (08:20)
[2022-10-11] MEDS: Diltiazem 120 MG Cap.CD PO SCH (08:21)
[2022-10-11] MEDS: Aspirin 81 MG Tab.Chew PO SCH (08:21)
[2022-10-11] MEDS: Clopidogrel 75 MG Tab PO SCH (08:21)
[2022-10-11] MEDS: methylPREDNISolone Sodium Succinate 40 MG/1 ML SDV IVPUSH SCH (08:22)
[2022-10-11] MEDS ORDERED: Tiotropium Bromide 4 GM Inhalation Spray (2.5mcg/1 dose; 10 doses) INH SCH ×2 (09:00)
[2022-10-11 10:54] LABS: HEMOGLOBIN A1C 6.1 %
[2022-10-11] MEDS ORDERED: Glucagon,Human Recombinant 1 MG Vial IM PRN ×2 (12:01→20:37)
[2022-10-11] MEDS ORDERED: 50% Dextrose in Water 50 ML Syringe IVPUSH PRN ×2 (12:01→20:37)
[2022-10-11] MEDS: Insulin Aspart 100 Units/ML 3 ML Pen SUBCUT SCH ×2 (13:11→16:50)
[2022-10-11] MEDS ORDERED: Enoxaparin 40 MG/0.4 ML Syringe SUBCUT SCH (15:00)
[2022-10-11] MEDS ORDERED: Rosuvastatin 10 MG Tab PO SCH (21:00)
[2022-10-11] MEDS ORDERED: Insulin Aspart 100 Units/ML 3 ML Pen SUBCUT ONE (21:00)
[2022-10-11] MEDS: Azithromycin 500 MG in Sodium Chloride 0.9% 250 ML IV SCH (21:47)
[2022-10-12] MEDS: Albuterol/Ipratropium 3.0-0.5 MG/3 ML Neb Soln NEB SCH (06:40)
[2022-10-12] MEDS: Insulin Aspart 100 Units/ML 3 ML Pen SUBCUT SCH ×2 (07:44→11:25)
[2022-10-12] MEDS: Aspirin 81 MG Tab.Chew PO SCH (08:52)
[2022-10-12] MEDS: Clopidogrel 75 MG Tab PO SCH (08:53)
[2022-10-12] MEDS: Diltiazem 120 MG Cap.CD PO SCH (08:53)
[2022-10-12] MEDS: Losartan 50 MG Tab PO SCH (08:56)
[2022-10-12] MEDS: methylPREDNISolone Sodium Succinate 40 MG/1 ML SDV IVPUSH SCH (08:57)
[2022-10-12 11:18] VITALS: PULSE 76
[2022-10-12 12:51] VITALS: BP 145/64
== END 2022-10-12 12:55 | disposition home or self-care (01) | DRG 190 ==
LOC: MW.ED 20:04 → MW.MS 21:40
PROVIDERS: ADMIT Family Medicine; ATTEND Family Medicine
DX: J44.1 Chronic obstructive pulmonary disease with (acute) exacerbation (principal); J96.01 Acute respiratory failure with hypoxia; J44.9 Chronic obstructive pulmonary disease, unspecified; F10.10 Alcohol abuse, uncomplicated; Z20.822 Contact with and (suspected) exposure to COVID-19; D72.829 Elevated white blood cell count, unspecified; R74.02 Elevation of levels of lactic acid dehydrogenase [LDH]; I10 Essential (primary) hypertension; Z99.81 Dependence on supplemental oxygen; Z72.0 Tobacco use; E78.00 Pure hypercholesterolemia, unspecified; Z79.02 Long term (current) use of antithrombotics/antiplatelets; Z79.82 Long term (current) use of aspirin; Z71.6 Tobacco abuse counseling; Z79.899 Other long term (current) drug therapy
CPT/HCPCS: 36415; 71045; 71275; 80053; 80307; 83605; 83880; 84484; 85025; 85610; 93005; 96365; 96375; 99291; J0696; J2930; J3490 ×2; U0002; 80048; 80305-QW; 81003; 82947; 83036; 85027; 93010; 94640; 99285; A9270-GY; J0456; J1650; J1815-GY; J2920; J7050; J7620-GY; Q9967

== ENCOUNTER 2022-11-05 21:49 | Emergency (ER) | payer MEDICARE, OTHER ==
[2022-11-05 22:00] LABS: BASE EXCESS VENOUS 1.1 (-2.0-3.0); PH,VENOUS 7.37 (7.31-7.41)
[2022-11-05 22:01] LABS: BASOPHILS ABSOLUTE AUTO 0.1 K/uL (0.0-0.1); BASOPHILS PERCENT AUTO 0.9 % (0.0-1.5); EOSINOPHILS ABSOLUTE AUTO 0.2 K/uL (0.0-0.7); EOSINOPHILS PERCENT AUTO 2.4 % (0.0-7.0); HEMATOCRIT 39.5 % (38.0-50.0); HEMOGLOBIN 13.7 g/dL (13.0-17.0); MEAN CORPUSCULAR HEMOGLOBIN 33.2 pg (27.0-32.0); MEAN CORPUSCULAR HGB CONC 34.7 g/dL (31.0-37.0); MEAN CORPUSCULAR VOLUME 95.6 fL (80.0-98.0); MONOCYTES ABSOLUTE AUTO 1.1 K/uL (0.0-0.8); NEUTROPHILS ABSOLUTE AUTO 6.4 K/uL (1.4-5.7); NEUTROPHILS PERCENT AUTO 65.7 % (48.0-80.0); NRBC ABSOLUTE 0 K/uL; PLATELET COUNT,PLT 455 K/uL (150-400); RED BLOOD CELL COUNT 4.13 M/uL (4.50-5.90); WHITE BLOOD CELL COUNT,WBC 9.76 K/uL (4.0-11.0)
[2022-11-05] MEDS ORDERED: methylPREDNISolone Sodium Succinate 125 MG/2 ML SDV IVPUSH ONE (22:01)
[2022-11-05] MEDS ORDERED: Albuterol/Ipratropium 3.0-0.5 MG/3 ML Neb Soln ONE (22:01)
[2022-11-05] MEDS ORDERED: Albuterol/Ipratropium 3.0-0.5 MG/3 ML Neb Soln NEB ONE (22:01)
[2022-11-05] MEDS ORDERED: methylPREDNISolone Sodium Succinate 125 MG/2 ML SDV ONE (22:02)
[2022-11-05 22:41] LABS: A/G RATIO 0.9 (0.9-1.6); ALBUMIN 3.4 g/dL (3.4-5.0); BILIRUBIN TOTAL 0.3 mg/dL (0.2-1.0); CALCIUM 8.8 mg/dL (8.5-10.1); CARBON DIOXIDE,CO2 25.7 mmol/L (21.0-32.0); CREATININE 0.7 mg/dL (0.8-1.3); EST CRCL DRUG DOSING (CG) 105.89 mL/min; MAGNESIUM 1.7 mg/dL (1.8-2.4); POTASSIUM,K 4.7 mmol/L (3.5-5.1); PROTEIN TOTAL,TP 7.1 g/dL (6.4-8.2)
[2022-11-05 23:26] LABS: CORONAVIRUS COVID-19 NAA NEGATIVE (NEGATIVE); INFLUENZA A NAA NEGATIVE (NEGATIVE); INFLUENZA B NAA NEGATIVE (NEGATIVE)
[2022-11-05] MEDS ORDERED: Albuterol 8 GM Inhaler INH ONE (23:33)
[2022-11-06 00:51] VITALS: BP 131/60; PULSE 70
== END 2022-11-06 00:49 | disposition home or self-care (01) ==
LOC: MW.ED 21:49
DX: J44.1 Chronic obstructive pulmonary disease with (acute) exacerbation (principal); E78.00 Pure hypercholesterolemia, unspecified; I10 Essential (primary) hypertension; Z20.822 Contact with and (suspected) exposure to COVID-19; Z79.82 Long term (current) use of aspirin; Z79.02 Long term (current) use of antithrombotics/antiplatelets; Z79.899 Other long term (current) drug therapy
CPT/HCPCS: 0240U; 36415; 71045; 80053; 82803; 83735; 84484; 85025; 93005; 96374; 99284; A9270; J2930; 93010; J7620-GY

== ENCOUNTER 2022-11-06 08:55 | Observation (INO) | payer MEDICARE, OTHER ==
[2022-11-06] MEDS ORDERED: Albuterol/Ipratropium 3.0-0.5 MG/3 ML Neb Soln NEB ONE (08:58)
[2022-11-06] MEDS ORDERED: Sodium Chloride 0.9% 10 ML Syringe FLUSH PRN (09:13)
[2022-11-06] MEDS ORDERED: Ondansetron 4 MG/2 ML SDV IVPUSH PRN (09:13)
[2022-11-06] MEDS ORDERED: Acetaminophen 325 MG Tab PO PRN (09:13)
[2022-11-06] MEDS ORDERED: Polyethylene Glycol 3350 Powder 17 GM Packet PO PRN (09:13)
[2022-11-06] MEDS ORDERED: Sodium Chloride 0.9% 20 ML SDV IV PRN (09:13)
[2022-11-06] MEDS ORDERED: Sodium Chloride 0.9% 2.5 ML Syringe FLUSH PRN (09:13)
[2022-11-06] MEDS ORDERED: LORazepam 2 MG/ML SDV IVPUSH PRN (09:22)
[2022-11-06] MEDS ORDERED: Albuterol/Ipratropium 3.0-0.5 MG/3 ML Neb Soln NEB PRN (09:22)
[2022-11-06] MEDS: Levofloxacin/Dextrose 5%-Water 750 MG in Premix Bag 1 BAG IV SCH (10:06)
[2022-11-06] MEDS: Enoxaparin 40 MG/0.4 ML Syringe SUBCUT SCH (10:09)
[2022-11-06] MEDS: methylPREDNISolone Sodium Succinate 40 MG/1 ML SDV IVPUSH SCH ×2 (10:10→20:49)
[2022-11-06] MEDS: Albuterol/Ipratropium 3.0-0.5 MG/3 ML Neb Soln NEB SCH ×2 (12:26→17:43)
[2022-11-06] MEDS: Thiamine 100 MG Tab PO SCH (20:49)
[2022-11-06] MEDS: Folic Acid 1 MG Tab PO SCH (20:49)
[2022-11-07] MEDS: Albuterol/Ipratropium 3.0-0.5 MG/3 ML Neb Soln NEB SCH ×5 (01:01→23:37)
[2022-11-07 06:03] LABS: BASOPHILS PERCENT AUTO 0.1 % (0.0-1.5); HEMATOCRIT 34.5 % (38.0-50.0); HEMOGLOBIN 12.1 g/dL (13.0-17.0); LYMPHOCYTES ABSOLUTE AUTO 0.5 K/uL (0.6-2.4); LYMPHOCYTES PERCENT AUTO 3.5 % (16.0-40.0); MEAN CORPUSCULAR HEMOGLOBIN 33.5 pg (27.0-32.0); MEAN CORPUSCULAR HGB CONC 35.1 g/dL (31.0-37.0); MEAN CORPUSCULAR VOLUME 95.6 fL (80.0-98.0); MONOCYTES ABSOLUTE AUTO 0.5 K/uL (0.0-0.8); MONOCYTES PERCENT AUTO 3.4 % (0.0-15.0); NEUTROPHILS ABSOLUTE AUTO 12.2 K/uL (1.4-5.7); NRBC ABSOLUTE 0 K/uL; PLATELET COUNT,PLT 411 K/uL (150-400); RED BLOOD CELL COUNT 3.61 M/uL (4.50-5.90)
[2022-11-07 06:08] LABS: CALCIUM 8.2 mg/dL (8.5-10.1); CARBON DIOXIDE,CO2 27.8 mmol/L (21.0-32.0); CREATININE 1.1 mg/dL (0.8-1.3); EST CRCL DRUG DOSING (CG) 65.53 mL/min; MAGNESIUM 1.8 mg/dL (1.8-2.4); POTASSIUM,K 4.4 mmol/L (3.5-5.1)
[2022-11-07] MEDS: Losartan 50 MG Tab PO SCH (09:40)
[2022-11-07] MEDS ORDERED: Glucagon,Human Recombinant 1 MG Vial IM PRN (09:51)
[2022-11-07] MEDS ORDERED: 50% Dextrose in Water 50 ML Syringe IVPUSH PRN (09:51)
[2022-11-07] MEDS: Levofloxacin/Dextrose 5%-Water 750 MG in Premix Bag 1 BAG IV SCH (09:57)
[2022-11-07] MEDS: Diltiazem 180 MG Cap.CD PO SCH (09:58)
[2022-11-07] MEDS: Rosuvastatin 10 MG Tab PO SCH (09:59)
[2022-11-07] MEDS: methylPREDNISolone Sodium Succinate 40 MG/1 ML SDV IVPUSH SCH ×2 (10:00→21:00)
[2022-11-07] MEDS: Tiotropium Bromide 4 GM Inhalation Spray (2.5mcg/1 dose; 10 doses) INH SCH (10:05)
[2022-11-07] MEDS: Enoxaparin 40 MG/0.4 ML Syringe SUBCUT SCH (10:06)
[2022-11-07] MEDS: Insulin Aspart 100 Units/ML 3 ML Pen SUBCUT SCH ×2 (11:57→17:00)
[2022-11-07] MEDS: Folic Acid 1 MG Tab PO SCH (20:59)
[2022-11-07] MEDS: Thiamine 100 MG Tab PO SCH (20:59)
[2022-11-08] MEDS: Albuterol/Ipratropium 3.0-0.5 MG/3 ML Neb Soln NEB SCH ×2 (05:56→12:04)
[2022-11-08] MEDS: methylPREDNISolone Sodium Succinate 40 MG/1 ML SDV IVPUSH SCH (08:35)
[2022-11-08] MEDS: Levofloxacin/Dextrose 5%-Water 750 MG in Premix Bag 1 BAG IV SCH (08:35)
[2022-11-08] MEDS: Enoxaparin 40 MG/0.4 ML Syringe SUBCUT SCH (08:35)
[2022-11-08] MEDS: Losartan 50 MG Tab PO SCH (08:35)
[2022-11-08] MEDS: Diltiazem 180 MG Cap.CD PO SCH (08:36)
[2022-11-08] MEDS: Rosuvastatin 10 MG Tab PO SCH (08:36)
[2022-11-08] MEDS: Tiotropium Bromide 4 GM Inhalation Spray (2.5mcg/1 dose; 10 doses) INH SCH (08:49)
[2022-11-08] MEDS: Insulin Aspart 100 Units/ML 3 ML Pen SUBCUT SCH ×2 (08:49→12:04)
[2022-11-08 11:46] VITALS: BP 121/61; PULSE 78
== END 2022-11-08 11:57 | disposition home or self-care (01) ==
LOC: MW.ED 08:55 → MW.MS 09:33 → UNDOADMOB 09:33 → MW.MS 09:47
PROVIDERS: ADMIT Family Medicine; ATTEND Family Medicine
DX: J44.1 Chronic obstructive pulmonary disease with (acute) exacerbation (principal); F10.10 Alcohol abuse, uncomplicated; I10 Essential (primary) hypertension; E78.00 Pure hypercholesterolemia, unspecified; M54.9 Dorsalgia, unspecified; G89.29 Other chronic pain; Z79.82 Long term (current) use of aspirin; Z79.899 Other long term (current) drug therapy; Z79.02 Long term (current) use of antithrombotics/antiplatelets; Z72.0 Tobacco use
CPT/HCPCS: 36415; 80048; 83735; 85025; 94640; 96365; 96366; 96372; 96375; 96376; 99285; A9270; G0378; J1650; J1815; J1956; J2920; 99222; 99231; 99238; J7620-GY

== ENCOUNTER 2023-12-03 10:53 | Emergency (ER) | payer MEDICARE, OTHER ==
[2023-12-03] MEDS ORDERED: Sodium Chloride 0.9% 2.5 ML Syringe FLUSH PRN (11:00)
[2023-12-03] MEDS ORDERED: Sodium Chloride 0.9% 10 ML Syringe FLUSH PRN (11:00)
[2023-12-03] MEDS: fentaNYL 50 MCG/ML SDV IVPUSH ONE (11:08)
[2023-12-03] MEDS: Sodium Chloride 0.9% 500 ML IV SCH (11:08)
[2023-12-03] MEDS: Albuterol/Ipratropium 3.0-0.5 MG/3 ML Neb Soln NEB ONE (11:22)
[2023-12-03] MEDS: methylPREDNISolone Sodium Succinate 125 MG/2 ML SDV IVPUSH ONE (11:25)
[2023-12-03 11:32] LABS: BASOPHILS ABSOLUTE AUTO 0.11 K/uL (0.00-0.20); BASOPHILS PERCENT AUTO 1.2 % (0.0-1.0); EOSINOPHILS ABSOLUTE AUTO 0.13 K/uL (0.00-0.45); EOSINOPHILS PERCENT AUTO 1.4 % (0.0-6.0); IMMATURE GRAN ABSOLUTE AUTO 0.05 K/uL (0.00-0.05); IMMATURE GRAN PERCENT AUTO 0.5 % (0.0-0.4); LYMPHOCYTES ABSOLUTE AUTO 0.93 K/uL (1.00-4.80); LYMPHOCYTES PERCENT AUTO 9.8 % (24.0-44.0); MEAN CORPUSCULAR HEMOGLOBIN 32.9 pg (28.0-32.0); MEAN CORPUSCULAR HGB CONC 35.1 g/dL (32.0-36.0); MEAN CORPUSCULAR VOLUME 93.7 fL (83.0-99.0); MEAN PLATELET VOLUME 9.6 fL (9.4-12.4); MONOCYTES ABSOLUTE AUTO 1.02 K/uL (0.00-0.80); MONOCYTES PERCENT AUTO 10.7 % (0.0-8.0); NEUTROPHILS ABSOLUTE AUTO 7.28 K/uL (1.80-7.70); NEUTROPHILS PERCENT AUTO 76.4 % (41.0-71.0); PLATELET COUNT,PLT 413 K/uL (150-400); RED BLOOD CELL COUNT 3.95 M/uL (4.52-5.90); WHITE BLOOD CELL COUNT,WBC 9.52 K/uL (3.9-11.3)
[2023-12-03 12:02] LABS: A/G RATIO 0.8 (0.9-1.6); ALBUMIN 3.1 g/dL (3.4-5.0); BILIRUBIN TOTAL 0.6 mg/dL (0.2-1.0); CALCIUM 9.1 mg/dL (8.5-10.1); CARBON DIOXIDE,CO2 29.2 mmol/L (21.0-32.0); CREATININE 0.9 mg/dL (0.8-1.3); EST CRCL DRUG DOSING (CG) 80.13 mL/min; POTASSIUM,K 4.5 mmol/L (3.5-5.1)
[2023-12-03 12:53] VITALS: BP 137/60; PULSE 93
== END 2023-12-03 12:58 | disposition home or self-care (01) ==
LOC: MW.ED 10:53
DX: S22.32XA Fracture of one rib, left side, initial encounter for closed fracture (principal); J44.9 Chronic obstructive pulmonary disease, unspecified; I10 Essential (primary) hypertension; E78.00 Pure hypercholesterolemia, unspecified; E11.9 Type 2 diabetes mellitus without complications; F17.210 Nicotine dependence, cigarettes, uncomplicated; Z79.899 Other long term (current) drug therapy; Z79.82 Long term (current) use of aspirin; X58.XXXA Exposure to other specified factors, initial encounter
CPT/HCPCS: 36415; 71101; 80053; 83880; 84484; 85025; 93005; 96361; 96374; 96375; 99285; J2919; J3010; J7040; U0002; 93010; 99284; J7620-GY

== ENCOUNTER 2024-12-08 01:00 | Emergency (ER) | payer MEDICARE, OTHER ==
[2024-12-08] MEDS: Albuterol 0.083% 2.5 MG/3 ML Neb Soln NEB ONE (01:29)
[2024-12-08 01:49] LABS: BASOPHILS ABSOLUTE AUTO 0.12 K/uL (0.00-0.20); BASOPHILS PERCENT AUTO 0.9 % (0.0-1.0); EOSINOPHILS ABSOLUTE AUTO 0.14 K/uL (0.00-0.45); EOSINOPHILS PERCENT AUTO 1.1 % (0.0-6.0); IMMATURE GRAN ABSOLUTE AUTO 0.09 K/uL (0.00-0.05); IMMATURE GRAN PERCENT AUTO 0.7 % (0.0-0.4); LYMPHOCYTES ABSOLUTE AUTO 1.07 K/uL (1.00-4.80); LYMPHOCYTES PERCENT AUTO 8.2 % (24.0-44.0); MEAN PLATELET VOLUME 9.6 fL (9.4-12.4); MONOCYTES ABSOLUTE AUTO 0.94 K/uL (0.00-0.80); MONOCYTES PERCENT AUTO 7.2 % (0.0-8.0); NEUTROPHILS ABSOLUTE AUTO 10.62 K/uL (1.80-7.70); NEUTROPHILS PERCENT AUTO 81.9 % (41.0-71.0); NRBC ABSOLUTE 0.00 K/uL (0.00-0.02); NRBC PERCENT 0.0 /100WBC (0.0-0.2); PLATELET COUNT,PLT 546 K/uL (150-400); RED BLOOD CELL COUNT 4.09 M/uL (4.52-5.90); WHITE BLOOD CELL COUNT,WBC 12.98 K/uL (3.9-11.3)
[2024-12-08 01:56] LABS: BASE EXCESS VENOUS 2.9 (-2.0-3.0); BICARBONATE,VENOUS 30.0 mEq/L (22-29); PCO2 VENOUS 54.0 mmHG (41-51); PH,VENOUS 7.35 (7.32-7.43); PO2 VENOUS 41.0 mmHG (35-45)
[2024-12-08 02:09] LABS: BLOOD UREA NITROGEN,BUN 9.0 mg/dL (7.0-18.0); CARBON DIOXIDE,CO2 28.7 mmol/L (21.0-32.0); CHLORIDE,CL 94.0 mmol/L (98-107); CREATININE 0.7 mg/dL (0.8-1.3); EST CRCL DRUG DOSING (CG) 91.57 mL/min; GLUCOSE RANDOM 103.0 mg/dL (74-106); POTASSIUM,K 4.3 mmol/L (3.5-5.1); SODIUM,NA 131.0 mmol/L (136-148)
[2024-12-08 02:15] LABS: ESTIMATED GFR 100.0 mL/min (>60)
[2024-12-08] MEDS: Codeine/Promethazine 10-6.25 MG/5 ML Syrup 5 ML UD Syringe PO PRN (02:31)
[2024-12-08] MEDS: Iopamidol 755 MG/ML 500 ML Multipack Bottle IVPUSH STA (03:46)
[2024-12-08 07:19] VITALS: BP 121/56; PULSE 80
== END 2024-12-08 08:02 ==
LOC: MW.ED 01:00
DX: J44.9 Chronic obstructive pulmonary disease, unspecified (principal); R91.8 Other nonspecific abnormal finding of lung field; E78.00 Pure hypercholesterolemia, unspecified; I10 Essential (primary) hypertension; E11.9 Type 2 diabetes mellitus without complications; Z79.82 Long term (current) use of aspirin; Z79.899 Other long term (current) drug therapy
CPT/HCPCS: 36415; 71045; 71260; 80048; 82803; 85025; 99285; A9270; Q9967; 99284; J3490

== ENCOUNTER 2025-01-08 09:59 | Inpatient (IN) | payer MEDICARE, OTHER ==
[2025-01-08] MEDS ORDERED: Sodium Chloride 0.9% 2.5 ML Syringe FLUSH PRN ×2 (10:04→17:10)
[2025-01-08] MEDS ORDERED: Sodium Chloride 0.9% 10 ML Syringe FLUSH PRN ×2 (10:04→17:10)
[2025-01-08] MEDS: LORazepam 2 MG/ML SDV IVPUSH ONE (10:16)
[2025-01-08] MEDS: Dexamethasone Sod Phos Preservative Free 10 MG/ML Vial IVPUSH ONE (10:16)
[2025-01-08 10:19] LABS: BASOPHILS ABSOLUTE AUTO 0.09 K/uL (0.00-0.20); BASOPHILS PERCENT AUTO 0.8 % (0.0-1.0); EOSINOPHILS ABSOLUTE AUTO 0.21 K/uL (0.00-0.45); EOSINOPHILS PERCENT AUTO 1.8 % (0.0-6.0); IMMATURE GRAN ABSOLUTE AUTO 0.18 K/uL (0.00-0.05); IMMATURE GRAN PERCENT AUTO 1.5 % (0.0-0.4); LYMPHOCYTES ABSOLUTE AUTO 0.52 K/uL (1.00-4.80); LYMPHOCYTES PERCENT AUTO 4.4 % (24.0-44.0); MEAN PLATELET VOLUME 8.9 fL (9.4-12.4); MONOCYTES ABSOLUTE AUTO 1.19 K/uL (0.00-0.80); MONOCYTES PERCENT AUTO 10.1 % (0.0-8.0); NEUTROPHILS ABSOLUTE AUTO 9.58 K/uL (1.80-7.70); NEUTROPHILS PERCENT AUTO 81.4 % (41.0-71.0); NRBC ABSOLUTE 0.00 K/uL (0.00-0.02); NRBC PERCENT 0.0 /100WBC (0.0-0.2); PLATELET COUNT,PLT 481 K/uL (150-400); RED BLOOD CELL COUNT 3.68 M/uL (4.52-5.90); WHITE BLOOD CELL COUNT,WBC 11.77 K/uL (3.9-11.3)
[2025-01-08] MEDS: Diltiazem 25 MG/5 ML SDV IVPUSH ONE (10:22)
[2025-01-08] MEDS: Diltiazem 100 MG in Sodium Chloride 0.9% 100 ML IV SCH ×2 (10:22→15:42)
[2025-01-08 10:27] LABS: BASE EXCESS VENOUS 4.0 (-2.0-3.0); BICARBONATE,VENOUS 30.0 mEq/L (23-28); PCO2 VENOUS 50.0 mmHG (41-51); PH,VENOUS 7.39 (7.31-7.41); PO2 VENOUS 46.0 mmHG (35-45)
[2025-01-08 10:53] LABS: BLOOD UREA NITROGEN,BUN 14.0 mg/dL (7.0-18.0); CARBON DIOXIDE,CO2 27.9 mmol/L (21.0-32.0); CHLORIDE,CL 98.0 mmol/L (98-107); CREATININE 0.6 mg/dL (0.8-1.3); EST CRCL DRUG DOSING (CG) 111.08 mL/min; GLUCOSE RANDOM 136.0 mg/dL (74-106); POTASSIUM,K 4.2 mmol/L (3.5-5.1); SODIUM,NA 136.0 mmol/L (136-148)
[2025-01-08 10:55] LABS: ESTIMATED GFR 104.0 mL/min (>60)
[2025-01-08 11:26] LABS: CORONAVIRUS COVID-19 NAA NEGATIVE (NEGATIVE); INFLUENZA A NAA NEGATIVE (NEGATIVE); INFLUENZA B NAA NEGATIVE (NEGATIVE)
[2025-01-08] MEDS: Iopamidol 755 Mg/ML 100 ML Bottle IVPUSH ONE (11:40)
[2025-01-08] MEDS: Heparin Sodium 5,000 Units/ML Vial IV ONE (14:22)
[2025-01-08] MEDS: Heparin Sodium/0.45% NaCl 25,000 UNITS/250 ML BAG IV SCH ×2 (14:23→15:41)
[2025-01-08] MEDS: cefTRIAXone 2 GM in Water For Injection, Sterile 20 ML IVPUSH SCH (18:31)
[2025-01-08] MEDS: Heparin Sodium 5,000 Units/ML Vial IVPUSH ONE (20:47)
[2025-01-09] MEDS: Acetaminophen/HYDROcodone 325-5 MG Tab PO PRN (03:31)
[2025-01-09 08:13] LABS: BASOPHILS ABSOLUTE AUTO 0.02 K/uL (0.00-0.20); BASOPHILS PERCENT AUTO 0.2 % (0.0-1.0); EOSINOPHILS ABSOLUTE AUTO 0.00 K/uL (0.00-0.45); EOSINOPHILS PERCENT AUTO 0.0 % (0.0-6.0); IMMATURE GRAN ABSOLUTE AUTO 0.19 K/uL (0.00-0.05); IMMATURE GRAN PERCENT AUTO 1.5 % (0.0-0.4); LYMPHOCYTES ABSOLUTE AUTO 0.68 K/uL (1.00-4.80); LYMPHOCYTES PERCENT AUTO 5.5 % (24.0-44.0); MEAN PLATELET VOLUME 9.4 fL (9.4-12.4); MONOCYTES ABSOLUTE AUTO 0.79 K/uL (0.00-0.80); MONOCYTES PERCENT AUTO 6.4 % (0.0-8.0); NEUTROPHILS ABSOLUTE AUTO 10.69 K/uL (1.80-7.70); NEUTROPHILS PERCENT AUTO 86.4 % (41.0-71.0); NRBC ABSOLUTE 0.00 K/uL (0.00-0.02); NRBC PERCENT 0.0 /100WBC (0.0-0.2); PLATELET COUNT,PLT 472 K/uL (150-400); RED BLOOD CELL COUNT 3.15 M/uL (4.52-5.90); WHITE BLOOD CELL COUNT,WBC 12.37 K/uL (3.9-11.3)
[2025-01-09 08:29] LABS: A/G RATIO 0.7 (0.9-1.6); ALANINE AMINOTRANSFERASE,ALT 12.0 IU/L (14-63); ASPARTATE AMNIOTRANSFERASE,AST 16.0 IU/L (15-37); BILIRUBIN TOTAL 0.2 mg/dL (0.2-1.0); BLOOD UREA NITROGEN,BUN 31.0 mg/dL (7.0-18.0); CARBON DIOXIDE,CO2 29.7 mmol/L (21.0-32.0); CHLORIDE,CL 97.0 mmol/L (98-107); CREATININE 0.9 mg/dL (0.8-1.3); EST CRCL DRUG DOSING (CG) 73.41 mL/min; GLUCOSE RANDOM 193.0 mg/dL (74-106); PHOSPHORUS 3.6 mg/dL (2.6-4.7); POTASSIUM,K 4.3 mmol/L (3.5-5.1); PROTEIN TOTAL,TP 6.4 g/dL (6.4-8.2); SODIUM,NA 135.0 mmol/L (136-148)
[2025-01-09 08:30] LABS: ESTIMATED GFR 92.0 mL/min (>60)
[2025-01-09] MEDS ORDERED: DILTIAZEM HCL 360 MG PO SCH (09:00)
[2025-01-09] MEDS: Diltiazem 180 MG Cap.CD PO SCH (09:07)
[2025-01-09] MEDS: Diltiazem 120 MG Cap.CD PO SCH (09:07)
[2025-01-09] MEDS: methylPREDNISolone Sodium Succinate 40 MG/1 ML SDV IVPUSH SCH (09:08)
[2025-01-09] MEDS: Heparin Sodium 5,000 Units/ML Vial IVPUSH ONE ×2 (09:08→21:29)
[2025-01-09] MEDS: Magnesium Sulfate 4 GM/100 mL 4 GM in Premix Bag 1 BAG IV ONE (10:18)
[2025-01-09] MEDS: Codeine/guaiFENesin 10-100 MG/5 ML Syrup 5 ML Cup PO PRN (10:22)
[2025-01-10 05:49] LABS: BASOPHILS ABSOLUTE AUTO 0.03 K/uL (0.00-0.20); BASOPHILS PERCENT AUTO 0.2 % (0.0-1.0); EOSINOPHILS ABSOLUTE AUTO 0.00 K/uL (0.00-0.45); EOSINOPHILS PERCENT AUTO 0.0 % (0.0-6.0); IMMATURE GRAN ABSOLUTE AUTO 0.18 K/uL (0.00-0.05); IMMATURE GRAN PERCENT AUTO 1.3 % (0.0-0.4); LYMPHOCYTES ABSOLUTE AUTO 0.57 K/uL (1.00-4.80); LYMPHOCYTES PERCENT AUTO 4.1 % (24.0-44.0); MEAN PLATELET VOLUME 9.3 fL (9.4-12.4); MONOCYTES ABSOLUTE AUTO 1.01 K/uL (0.00-0.80); MONOCYTES PERCENT AUTO 7.2 % (0.0-8.0); NEUTROPHILS ABSOLUTE AUTO 12.15 K/uL (1.80-7.70); NEUTROPHILS PERCENT AUTO 87.2 % (41.0-71.0); NRBC ABSOLUTE 0.00 K/uL (0.00-0.02); NRBC PERCENT 0.0 /100WBC (0.0-0.2); PLATELET COUNT,PLT 500 K/uL (150-400); RED BLOOD CELL COUNT 2.98 M/uL (4.52-5.90); WHITE BLOOD CELL COUNT,WBC 13.94 K/uL (3.9-11.3)
[2025-01-10 06:10] LABS: BLOOD UREA NITROGEN,BUN 31.0 mg/dL (7.0-18.0); CARBON DIOXIDE,CO2 29.3 mmol/L (21.0-32.0); CHLORIDE,CL 100.0 mmol/L (98-107); CREATININE 0.7 mg/dL (0.8-1.3); GLUCOSE RANDOM 177.0 mg/dL (74-106); POTASSIUM,K 4.6 mmol/L (3.5-5.1); SODIUM,NA 136.0 mmol/L (136-148)
[2025-01-10 06:19] LABS: EST CRCL DRUG DOSING (CG) 97.2 mL/min; ESTIMATED GFR 100.0 mL/min (>60)
[2025-01-10 12:12] VITALS: BP 138/66; PULSE 77
== END 2025-01-10 12:26 | disposition home or self-care (01) | DRG 175 ==
LOC: MW.ED 09:59 → MW.ICU 13:51 → MW.MS 01-09 18:24
PROVIDERS: ADMIT Internal Medicine; ATTEND Internal Medicine
PROC: 5A09357 Assistance with Respiratory Ventilation, Less than 24 Consecutive Hours, Continuous Positive Airway Pressure (ICD-10-PCS; principal; 2025-01-08)
PROC: 3E0333Z Introduction of Anti-inflammatory into Peripheral Vein, Percutaneous Approach (ICD-10-PCS; 2025-01-08)
PROC: 3E03329 Introduction of Other Anti-infective into Peripheral Vein, Percutaneous Approach (ICD-10-PCS; 2025-01-08)
DX: I26.99 Other pulmonary embolism without acute cor pulmonale (principal); J96.01 Acute respiratory failure with hypoxia; C34.90 Malignant neoplasm of unspecified part of unspecified bronchus or lung; J44.1 Chronic obstructive pulmonary disease with (acute) exacerbation; I26.09 Other pulmonary embolism with acute cor pulmonale; G89.29 Other chronic pain; I48.91 Unspecified atrial fibrillation; I10 Essential (primary) hypertension; E78.00 Pure hypercholesterolemia, unspecified; R06.03 Acute respiratory distress; D63.0 Anemia in neoplastic disease; M54.9 Dorsalgia, unspecified; Z87.01 Personal history of pneumonia (recurrent); Z79.82 Long term (current) use of aspirin; Z79.899 Other long term (current) drug therapy; Z79.51 Long term (current) use of inhaled steroids; Z79.891 Long term (current) use of opiate analgesic; Z87.891 Personal history of nicotine dependence; Z98.49 Cataract extraction status, unspecified eye; Z92.21 Personal history of antineoplastic chemotherapy; Z79.1 Long term (current) use of non-steroidal anti-inflammatories (NSAID); E11.9 Type 2 diabetes mellitus without complications; Z99.81 Dependence on supplemental oxygen; J44.9 Chronic obstructive pulmonary disease, unspecified
CPT/HCPCS: 36415; 71045; 71275; 80048; 82803; 84484; 85025; 85379; 87040 ×2; 87636; 93005; 94640; 94660; 96374; 96375; 99285; A9270; J1100; J1163; J2060; J3490; Q9967; 80053; 83036; 83735; 84100; 85730; 93010; A4216; J0696; J1644; J2919; J3475

== ENCOUNTER 2025-01-25 13:53 | Inpatient (IN) | payer MEDICARE, OTHER ==
[2025-01-25 14:13] LABS: BASOPHILS ABSOLUTE AUTO 0.02 K/uL (0.00-0.20); BASOPHILS PERCENT AUTO 0.4 % (0.0-1.0); EOSINOPHILS ABSOLUTE AUTO 0.01 K/uL (0.00-0.45); EOSINOPHILS PERCENT AUTO 0.2 % (0.0-6.0); IMMATURE GRAN ABSOLUTE AUTO 0.03 K/uL (0.00-0.05); IMMATURE GRAN PERCENT AUTO 0.6 % (0.0-0.4); LYMPHOCYTES ABSOLUTE AUTO 0.17 K/uL (1.00-4.80); LYMPHOCYTES PERCENT AUTO 3.1 % (24.0-44.0); MEAN PLATELET VOLUME 9.0 fL (9.4-12.4); MONOCYTES ABSOLUTE AUTO 0.19 K/uL (0.00-0.80); MONOCYTES PERCENT AUTO 3.5 % (0.0-8.0); NEUTROPHILS ABSOLUTE AUTO 5.02 K/uL (1.80-7.70); NEUTROPHILS PERCENT AUTO 92.2 % (41.0-71.0); NRBC ABSOLUTE 0.00 K/uL (0.00-0.02); NRBC PERCENT 0.0 /100WBC (0.0-0.2); PLATELET COUNT,PLT 297 K/uL (150-400); RED BLOOD CELL COUNT 2.45 M/uL (4.52-5.90); WHITE BLOOD CELL COUNT,WBC 5.44 K/uL (3.9-11.3)
[2025-01-25] MEDS ORDERED: Sodium Chloride 0.9% 10 ML Syringe FLUSH PRN (14:23)
[2025-01-25] MEDS ORDERED: Sodium Chloride 0.9% 2.5 ML Syringe FLUSH PRN (14:23)
[2025-01-25 14:40] LABS: INR 1.09 (0.86-1.11); PTT,PARTIAL THROMBOPLSTIN TIME 44.2 SEC (23.9-30.7)
[2025-01-25 14:55] LABS: A/G RATIO 0.8 (0.9-1.6); ALANINE AMINOTRANSFERASE,ALT 20.0 IU/L (14-63); ASPARTATE AMNIOTRANSFERASE,AST 13.0 IU/L (15-37); BILIRUBIN TOTAL 0.6 mg/dL (0.2-1.0); BLOOD UREA NITROGEN,BUN 16.0 mg/dL (7.0-18.0); CARBON DIOXIDE,CO2 27.5 mmol/L (21.0-32.0); CHLORIDE,CL 98.0 mmol/L (98-107); CREATININE 0.7 mg/dL (0.8-1.3); EST CRCL DRUG DOSING (CG) 99.32 mL/min; GLUCOSE RANDOM 140.0 mg/dL (74-106); POTASSIUM,K 4.5 mmol/L (3.5-5.1); PROTEIN TOTAL,TP 6.4 g/dL (6.4-8.2); SODIUM,NA 133.0 mmol/L (136-148)
[2025-01-25 15:05] LABS: ESTIMATED GFR 100.0 mL/min (>60)
[2025-01-25 15:13] LABS: LACTIC ACID 0.7 mmol/L (0.4-2.0)
[2025-01-25] MEDS: Iopamidol 755 MG/ML 500 ML Multipack Bottle IVPUSH STA (16:53)
[2025-01-25] MEDS: Diltiazem 25 MG/5 ML SDV IVPUSH ONE (17:18)
[2025-01-25] MEDS ORDERED: Ondansetron 4 MG Tab.DIS PO PRN (18:59)
[2025-01-25] MEDS ORDERED: Ondansetron 4 MG/2 ML SDV IVPUSH PRN (18:59)
[2025-01-25] MEDS: Magnesium Sulfate 2 GM/50 mL 2 GM in Premix Bag 1 BAG IV ONE (19:01)
[2025-01-26 06:35] LABS: BASOPHILS ABSOLUTE AUTO 0.01 K/uL (0.00-0.20); BASOPHILS PERCENT AUTO 0.2 % (0.0-1.0); EOSINOPHILS ABSOLUTE AUTO 0.00 K/uL (0.00-0.45); EOSINOPHILS PERCENT AUTO 0.0 % (0.0-6.0); IMMATURE GRAN ABSOLUTE AUTO 0.05 K/uL (0.00-0.05); IMMATURE GRAN PERCENT AUTO 0.8 % (0.0-0.4); LYMPHOCYTES ABSOLUTE AUTO 0.15 K/uL (1.00-4.80); LYMPHOCYTES PERCENT AUTO 2.3 % (24.0-44.0); MEAN PLATELET VOLUME 9.1 fL (9.4-12.4); MONOCYTES ABSOLUTE AUTO 0.13 K/uL (0.00-0.80); MONOCYTES PERCENT AUTO 2.0 % (0.0-8.0); NEUTROPHILS ABSOLUTE AUTO 6.22 K/uL (1.80-7.70); NEUTROPHILS PERCENT AUTO 94.7 % (41.0-71.0); NRBC ABSOLUTE 0.00 K/uL (0.00-0.02); NRBC PERCENT 0.0 /100WBC (0.0-0.2); PLATELET COUNT,PLT 273 K/uL (150-400); RED BLOOD CELL COUNT 2.94 M/uL (4.52-5.90); WHITE BLOOD CELL COUNT,WBC 6.56 K/uL (3.9-11.3)
[2025-01-26 06:58] LABS: A/G RATIO 0.7 (0.9-1.6); ALANINE AMINOTRANSFERASE,ALT 29.0 IU/L (14-63); ASPARTATE AMNIOTRANSFERASE,AST 24.0 IU/L (15-37); BILIRUBIN TOTAL 0.7 mg/dL (0.2-1.0); BLOOD UREA NITROGEN,BUN 20.0 mg/dL (7.0-18.0); CARBON DIOXIDE,CO2 28.6 mmol/L (21.0-32.0); CHLORIDE,CL 98.0 mmol/L (98-107); CREATININE 0.6 mg/dL (0.8-1.3); EST CRCL DRUG DOSING (CG) 89.57 mL/min; GLUCOSE RANDOM 167.0 mg/dL (74-106); PHOSPHORUS 2.6 mg/dL (2.6-4.7); POTASSIUM,K 4.6 mmol/L (3.5-5.1); PROTEIN TOTAL,TP 6.1 g/dL (6.4-8.2); SODIUM,NA 132.0 mmol/L (136-148)
[2025-01-26 07:04] LABS: ESTIMATED GFR 104.0 mL/min (>60)
[2025-01-26] MEDS: Pantoprazole 40 MG in Sodium Chloride 0.9% 20 ML IVPUSH SCH (08:03)
[2025-01-26] MEDS: Diltiazem 180 MG Cap.CD PO SCH (08:05)
[2025-01-26] MEDS: Diltiazem 120 MG Cap.CD PO SCH (08:05)
[2025-01-26] MEDS ORDERED: DILTIAZEM HCL 300 MG PO SCH (09:00)
[2025-01-26] MEDS: cefTRIAXone 1 GM in Water For Injection, Sterile 10 ML IVPUSH SCH (11:49)
[2025-01-27 05:44] LABS: BASOPHILS ABSOLUTE AUTO 0.01 K/uL (0.00-0.20); BASOPHILS PERCENT AUTO 0.1 % (0.0-1.0); EOSINOPHILS ABSOLUTE AUTO 0.00 K/uL (0.00-0.45); EOSINOPHILS PERCENT AUTO 0.0 % (0.0-6.0); IMMATURE GRAN ABSOLUTE AUTO 0.07 K/uL (0.00-0.05); IMMATURE GRAN PERCENT AUTO 0.8 % (0.0-0.4); LYMPHOCYTES ABSOLUTE AUTO 0.18 K/uL (1.00-4.80); LYMPHOCYTES PERCENT AUTO 2.1 % (24.0-44.0); MEAN PLATELET VOLUME 9.3 fL (9.4-12.4); MONOCYTES ABSOLUTE AUTO 0.30 K/uL (0.00-0.80); MONOCYTES PERCENT AUTO 3.5 % (0.0-8.0); NEUTROPHILS ABSOLUTE AUTO 8.12 K/uL (1.80-7.70); NEUTROPHILS PERCENT AUTO 93.5 % (41.0-71.0); NRBC ABSOLUTE 0.02 K/uL (0.00-0.02); NRBC PERCENT 0.2 /100WBC (0.0-0.2); PLATELET COUNT,PLT 290 K/uL (150-400); RED BLOOD CELL COUNT 2.95 M/uL (4.52-5.90); WHITE BLOOD CELL COUNT,WBC 8.68 K/uL (3.9-11.3)
[2025-01-27 06:07] LABS: A/G RATIO 0.8 (0.9-1.6); ALANINE AMINOTRANSFERASE,ALT 28.0 IU/L (14-63); ASPARTATE AMNIOTRANSFERASE,AST 13.0 IU/L (15-37); BILIRUBIN TOTAL 0.2 mg/dL (0.2-1.0); BLOOD UREA NITROGEN,BUN 23.0 mg/dL (7.0-18.0); CARBON DIOXIDE,CO2 29.5 mmol/L (21.0-32.0); CHLORIDE,CL 99.0 mmol/L (98-107); CREATININE 0.7 mg/dL (0.8-1.3); EST CRCL DRUG DOSING (CG) 86.64 mL/min; GLUCOSE RANDOM 248.0 mg/dL (74-106); PHOSPHORUS 2.5 mg/dL (2.6-4.7); POTASSIUM,K 4.6 mmol/L (3.5-5.1); PROTEIN TOTAL,TP 6.0 g/dL (6.4-8.2); SODIUM,NA 135.0 mmol/L (136-148)
[2025-01-27 06:12] LABS: ESTIMATED GFR 100.0 mL/min (>60)
[2025-01-27] MEDS: Phosphorus #1 250 MG Tab PO SCH (11:28)
[2025-01-28 05:44] LABS: BASOPHILS ABSOLUTE AUTO 0.01 K/uL (0.00-0.20); BASOPHILS PERCENT AUTO 0.1 % (0.0-1.0); EOSINOPHILS ABSOLUTE AUTO 0.00 K/uL (0.00-0.45); EOSINOPHILS PERCENT AUTO 0.0 % (0.0-6.0); IMMATURE GRAN ABSOLUTE AUTO 0.04 K/uL (0.00-0.05); IMMATURE GRAN PERCENT AUTO 0.5 % (0.0-0.4); LYMPHOCYTES ABSOLUTE AUTO 0.36 K/uL (1.00-4.80); LYMPHOCYTES PERCENT AUTO 4.6 % (24.0-44.0); MEAN PLATELET VOLUME 9.1 fL (9.4-12.4); MONOCYTES ABSOLUTE AUTO 0.28 K/uL (0.00-0.80); MONOCYTES PERCENT AUTO 3.6 % (0.0-8.0); NEUTROPHILS ABSOLUTE AUTO 7.13 K/uL (1.80-7.70); NEUTROPHILS PERCENT AUTO 91.2 % (41.0-71.0); NRBC ABSOLUTE 0.00 K/uL (0.00-0.02); NRBC PERCENT 0.0 /100WBC (0.0-0.2); PLATELET COUNT,PLT 291 K/uL (150-400); RED BLOOD CELL COUNT 2.89 M/uL (4.52-5.90); WHITE BLOOD CELL COUNT,WBC 7.82 K/uL (3.9-11.3)
[2025-01-28 06:09] LABS: A/G RATIO 0.8 (0.9-1.6); ALANINE AMINOTRANSFERASE,ALT 25.0 IU/L (14-63); ASPARTATE AMNIOTRANSFERASE,AST 11.0 IU/L (15-37); BILIRUBIN TOTAL 0.2 mg/dL (0.2-1.0); BLOOD UREA NITROGEN,BUN 22.0 mg/dL (7.0-18.0); CARBON DIOXIDE,CO2 33.0 mmol/L (21.0-32.0); CHLORIDE,CL 98.0 mmol/L (98-107); CREATININE 0.8 mg/dL (0.8-1.3); EST CRCL DRUG DOSING (CG) 76.11 mL/min; GLUCOSE RANDOM 138.0 mg/dL (74-106); PHOSPHORUS 3.0 mg/dL (2.6-4.7); POTASSIUM,K 4.3 mmol/L (3.5-5.1); PROTEIN TOTAL,TP 5.7 g/dL (6.4-8.2); SODIUM,NA 135.0 mmol/L (136-148)
[2025-01-28 06:11] LABS: ESTIMATED GFR 96.0 mL/min (>60)
[2025-01-28] MEDS ORDERED: 50% Dextrose in Water 50 ML Syringe IVPUSH PRN (07:19)
[2025-01-28] MEDS: Magnesium Sulfate 4 GM/100 mL 4 GM in Premix Bag 1 BAG IV ONE (07:55)
[2025-01-28] MEDS: Furosemide 20 MG/2 ML VIAL IVPUSH ONE (08:12)
[2025-01-28 12:20] VITALS: BP 133/67; PULSE 118
== END 2025-01-28 13:30 | disposition home or self-care (01) | DRG 190 ==
LOC: MW.ED 13:53 → MW.MS 18:24 → OBSVTOIN 01-26 10:00
PROVIDERS: ADMIT Family Medicine; ATTEND Family Medicine
PROC: 3E03329 Introduction of Other Anti-infective into Peripheral Vein, Percutaneous Approach (ICD-10-PCS; principal; 2025-01-25)
PROC: 30233N1 Transfusion of Nonautologous Red Blood Cells into Peripheral Vein, Percutaneous Approach (ICD-10-PCS; 2025-01-25)
DX: J44.1 Chronic obstructive pulmonary disease with (acute) exacerbation (principal); J18.9 Pneumonia, unspecified organism; J81.1 Chronic pulmonary edema; R06.02 Shortness of breath; C34.90 Malignant neoplasm of unspecified part of unspecified bronchus or lung; J44.0 Chronic obstructive pulmonary disease with (acute) lower respiratory infection; D64.9 Anemia, unspecified; M54.9 Dorsalgia, unspecified; G89.29 Other chronic pain; I10 Essential (primary) hypertension; I11.0 Hypertensive heart disease with heart failure; I50.9 Heart failure, unspecified; I48.91 Unspecified atrial fibrillation; E11.9 Type 2 diabetes mellitus without complications; F10.90 Alcohol use, unspecified, uncomplicated; E83.42 Hypomagnesemia; E83.39 Other disorders of phosphorus metabolism; E78.00 Pure hypercholesterolemia, unspecified; Z79.01 Long term (current) use of anticoagulants; Z99.81 Dependence on supplemental oxygen; Z79.52 Long term (current) use of systemic steroids; Z98.49 Cataract extraction status, unspecified eye; Z79.82 Long term (current) use of aspirin; Z79.899 Other long term (current) drug therapy
CPT/HCPCS: 36415; 36430; 71045; 71045-26; 71275; 71275-26; 80053; 82947; 83036; 83605; 83735; 83880; 84100; 84484; 85014; 85018; 85025; 85610; 85730; 86850; 86900; 86901; 86920; 93005; 93010; 93306; 94640; 96365; 96374; 96375; 97161-GP; 99285; 99285-25; A9270-GY; G0378; J0696; J1163; J1642; J2470; J3475; J7030; J7512; P9016; Q9967

== ENCOUNTER 2025-02-22 16:54 | Inpatient (IN) | payer MEDICARE, OTHER ==
[2025-02-22] MEDS ORDERED: Sodium Chloride 0.9% 10 ML Syringe FLUSH PRN ×3 (17:27→19:35)
[2025-02-22] MEDS ORDERED: Sodium Chloride 0.9% 2.5 ML Syringe FLUSH PRN ×3 (17:27→19:35)
[2025-02-22 18:22] LABS: MEAN PLATELET VOLUME 9.6 fL (9.4-12.4); NRBC ABSOLUTE 0.04 K/uL (0.00-0.02); NRBC PERCENT 1.3 /100WBC (0.0-0.2); PLATELET COUNT,PLT 267 K/uL (150-400); RED BLOOD CELL COUNT 3.27 M/uL (4.52-5.90); WHITE BLOOD CELL COUNT,WBC 3.15 K/uL (3.9-11.3)
[2025-02-22 18:32] LABS: INR 1.1 (0.86-1.11); PTT,PARTIAL THROMBOPLSTIN TIME 32.8 SEC (23.9-30.7)
[2025-02-22 18:42] LABS: A/G RATIO 0.9 (0.9-1.6); ALANINE AMINOTRANSFERASE,ALT 28.0 IU/L (14-63); ASPARTATE AMNIOTRANSFERASE,AST 18.0 IU/L (15-37); BAND ABSOLUTE MAN 0.09; BAND PERCENT MAN 3 %; BILIRUBIN TOTAL 0.8 mg/dL (0.2-1.0); BLOOD UREA NITROGEN,BUN 13.0 mg/dL (7.0-18.0); CARBON DIOXIDE,CO2 32.3 mmol/L (21.0-32.0); CHLORIDE,CL 95.0 mmol/L (98-107); CREATININE 0.9 mg/dL (0.8-1.3); EST CRCL DRUG DOSING (CG) 79.98 mL/min; GLUCOSE RANDOM 181.0 mg/dL (74-106); POTASSIUM,K 4.8 mmol/L (3.5-5.1); PROTEIN TOTAL,TP 6.7 g/dL (6.4-8.2); SEG NEUTROPHILS ABSOLUTE MAN 2.90 K/uL (1.80-7.70); SEG NEUTROPHILS PERCENT MAN 92 % (41-71); SODIUM,NA 132.0 mmol/L (136-148)
[2025-02-22 18:43] LABS: LYMPHOCYTES ABSOLUTE MAN 0.13 K/uL (1.00-4.80); LYMPHOCYTES PERCENT MAN 4 % (24-44); MONOCYTES ABSOLUTE MAN 0.03 K/uL (0.00-0.80); MONOCYTES PERCENT MAN 1 % (0-8)
[2025-02-22 18:45] LABS: ESTIMATED GFR 92.0 mL/min (>60); LACTIC ACID 1.5 mmol/L (0.4-2.0)
[2025-02-22] MEDS: Magnesium Sulfate 2 GM/50 mL 2 GM in Premix Bag 1 BAG IV ONE ×2 (19:02→22:31)
[2025-02-22] MEDS: Furosemide 40 MG/4 ML VIAL IVPUSH ONE (19:17)
[2025-02-22] MEDS: Iopamidol 755 MG/ML 500 ML Multipack Bottle IVPUSH STA (20:41)
[2025-02-22 23:50] LABS: APPEARANCE,URINE CLEAR; GLUCOSE,URINE NEGATIVE (NEGATIVE); OCCULT BLOOD,URINE NEGATIVE (NEGATIVE)
[2025-02-22 23:51] LABS: EPITHELIAL CELLS,URINE RARE (NONE-FEW)
[2025-02-23] MEDS: Metoprolol Tartrate 5 MG/5 ML SDV IVPUSH ONE (02:17)
[2025-02-23 05:32] LABS: BASOPHILS ABSOLUTE AUTO 0.00 K/uL (0.00-0.20); BASOPHILS PERCENT AUTO 0.0 % (0.0-1.0); EOSINOPHILS ABSOLUTE AUTO 0.00 K/uL (0.00-0.45); EOSINOPHILS PERCENT AUTO 0.0 % (0.0-6.0); IMMATURE GRAN ABSOLUTE AUTO 0.02 K/uL (0.00-0.05); IMMATURE GRAN PERCENT AUTO 0.5 % (0.0-0.4); LYMPHOCYTES ABSOLUTE AUTO 0.09 K/uL (1.00-4.80); LYMPHOCYTES PERCENT AUTO 2.3 % (24.0-44.0); MEAN PLATELET VOLUME 9.8 fL (9.4-12.4); MONOCYTES ABSOLUTE AUTO 0.08 K/uL (0.00-0.80); MONOCYTES PERCENT AUTO 2.0 % (0.0-8.0); NEUTROPHILS ABSOLUTE AUTO 3.72 K/uL (1.80-7.70); NEUTROPHILS PERCENT AUTO 95.2 % (41.0-71.0); NRBC ABSOLUTE 0.03 K/uL (0.00-0.02); NRBC PERCENT 0.8 /100WBC (0.0-0.2); PLATELET COUNT,PLT 236 K/uL (150-400); RED BLOOD CELL COUNT 2.62 M/uL (4.52-5.90); WHITE BLOOD CELL COUNT,WBC 3.91 K/uL (3.9-11.3)
[2025-02-23 06:20] LABS: A/G RATIO 0.8 (0.9-1.6); ALANINE AMINOTRANSFERASE,ALT 18.0 IU/L (14-63); ASPARTATE AMNIOTRANSFERASE,AST 14.0 IU/L (15-37); BILIRUBIN TOTAL 0.3 mg/dL (0.2-1.0); BLOOD UREA NITROGEN,BUN 18.0 mg/dL (7.0-18.0); CARBON DIOXIDE,CO2 32.1 mmol/L (21.0-32.0); CHLORIDE,CL 95.0 mmol/L (98-107); CREATININE 0.9 mg/dL (0.8-1.3); EST CRCL DRUG DOSING (CG) 79.98 mL/min; GLUCOSE RANDOM 248.0 mg/dL (74-106); POTASSIUM,K 3.9 mmol/L (3.5-5.1); PROTEIN TOTAL,TP 5.8 g/dL (6.4-8.2); SODIUM,NA 133.0 mmol/L (136-148)
[2025-02-23 06:29] LABS: ESTIMATED GFR 92.0 mL/min (>60)
[2025-02-23] MEDS: Furosemide 40 MG/4 ML VIAL IVPUSH SCH (08:12)
[2025-02-23] MEDS: Diltiazem 120 MG Cap.CD PO SCH (08:13)
[2025-02-23] MEDS: Diltiazem 180 MG Cap.CD PO SCH (08:16)
[2025-02-23] MEDS: Potassium Chloride 10% 20 MEQ/15 ML Soln 15 ML UD Cup PO ONE (12:27)
[2025-02-23] MEDS: Magnesium Sulfate 2 GM/50 mL 2 GM in Premix Bag 1 BAG IV ONE (12:31)
[2025-02-23] MEDS: Ipratropium 0.02% 0.5 MG/2.5 ML Neb Soln NEB SCH (14:23)
[2025-02-23] MEDS: Albuterol 0.083% 2.5 MG/3 ML Neb Soln NEB PRN (15:08)
[2025-02-23] MEDS: Acetaminophen/HYDROcodone 325-5 MG Tab PO SCH (17:34)
[2025-02-24 05:36] LABS: MEAN PLATELET VOLUME 9.7 fL (9.4-12.4); NRBC ABSOLUTE 0.03 K/uL (0.00-0.02); NRBC PERCENT 0.6 /100WBC (0.0-0.2); PLATELET COUNT,PLT 243 K/uL (150-400); RED BLOOD CELL COUNT 2.89 M/uL (4.52-5.90); WHITE BLOOD CELL COUNT,WBC 4.77 K/uL (3.9-11.3)
[2025-02-24 06:05] LABS: BAND ABSOLUTE MAN 0.14; BAND PERCENT MAN 3 %; LYMPHOCYTES ABSOLUTE MAN 0.14 K/uL (1.00-4.80); LYMPHOCYTES PERCENT MAN 3 % (24-44); MONOCYTES ABSOLUTE MAN 0.10 K/uL (0.00-0.80); MONOCYTES PERCENT MAN 2 % (0-8); SEG NEUTROPHILS ABSOLUTE MAN 4.39 K/uL (1.80-7.70); SEG NEUTROPHILS PERCENT MAN 92 % (41-71)
[2025-02-24 06:09] LABS: A/G RATIO 0.8 (0.9-1.6); ALANINE AMINOTRANSFERASE,ALT 25.0 IU/L (14-63); ASPARTATE AMNIOTRANSFERASE,AST 13.0 IU/L (15-37); BILIRUBIN TOTAL 0.3 mg/dL (0.2-1.0); BLOOD UREA NITROGEN,BUN 29.0 mg/dL (7.0-18.0); CARBON DIOXIDE,CO2 31.9 mmol/L (21.0-32.0); CHLORIDE,CL 99.0 mmol/L (98-107); CREATININE 1.0 mg/dL (0.8-1.3); EST CRCL DRUG DOSING (CG) 71.99 mL/min; ESTIMATED GFR 81.0 mL/min (>60); GLUCOSE RANDOM 191.0 mg/dL (74-106); POTASSIUM,K 4.6 mmol/L (3.5-5.1); PROTEIN TOTAL,TP 6.2 g/dL (6.4-8.2); SODIUM,NA 136.0 mmol/L (136-148)
[2025-02-24] MEDS: Formoterol/Mometasone 200-5 MCG 8.8 GM Inhaler INH SCH (10:22)
[2025-02-24] MEDS: Magnesium Sulfate 2 GM/50 mL 2 GM in Premix Bag 1 BAG IV SCH (10:23)
[2025-02-25 05:27] LABS: MEAN PLATELET VOLUME 9.4 fL (9.4-12.4); NRBC ABSOLUTE 0.04 K/uL (0.00-0.02); NRBC PERCENT 1.6 /100WBC (0.0-0.2); PLATELET COUNT,PLT 232 K/uL (150-400); RED BLOOD CELL COUNT 3.04 M/uL (4.52-5.90); WHITE BLOOD CELL COUNT,WBC 2.48 K/uL (3.9-11.3)
[2025-02-25 05:48] LABS: A/G RATIO 0.8 (0.9-1.6); ALANINE AMINOTRANSFERASE,ALT 21.0 IU/L (14-63); ASPARTATE AMNIOTRANSFERASE,AST 11.0 IU/L (15-37); BILIRUBIN TOTAL 0.5 mg/dL (0.2-1.0); BLOOD UREA NITROGEN,BUN 24.0 mg/dL (7.0-18.0); CARBON DIOXIDE,CO2 35.1 mmol/L (21.0-32.0); CHLORIDE,CL 96.0 mmol/L (98-107); CREATININE 0.7 mg/dL (0.8-1.3); EST CRCL DRUG DOSING (CG) 102.84 mL/min; GLUCOSE RANDOM 127.0 mg/dL (74-106); POTASSIUM,K 4.1 mmol/L (3.5-5.1); PROTEIN TOTAL,TP 6.0 g/dL (6.4-8.2); SODIUM,NA 136.0 mmol/L (136-148)
[2025-02-25 05:54] LABS: ESTIMATED GFR 100.0 mL/min (>60)
[2025-02-25 06:12] LABS: LYMPHOCYTES ABSOLUTE MAN 0.17 K/uL (1.00-4.80); LYMPHOCYTES PERCENT MAN 7 % (24-44)
[2025-02-25 06:13] LABS: SEG NEUTROPHILS ABSOLUTE MAN 2.13 K/uL (1.80-7.70); SEG NEUTROPHILS PERCENT MAN 86 % (41-71)
[2025-02-25 06:16] LABS: BAND ABSOLUTE MAN 0.10; BAND PERCENT MAN 4 %; MONOCYTES ABSOLUTE MAN 0.07 K/uL (0.00-0.80); MONOCYTES PERCENT MAN 3 % (0-8)
[2025-02-25] MEDS: Magnesium Sulfate 2 GM/50 mL 2 GM in Premix Bag 1 BAG IV ONE (08:03)
[2025-02-25] MEDS: Magnesium Sulfate 4 GM/100 mL 4 GM in Premix Bag 1 BAG IV ONE (09:46)
[2025-02-25] MEDS: Amiodarone 360 MG/200 ML 360 MG/200 ML BAG IV ONE (13:04)
[2025-02-25] MEDS: Sennosides/Docusate Sodium 50-8.6 MG Tab PO SCH (17:55)
[2025-02-25] MEDS: Amiodarone 360 MG/200 ML 540 MG/300 ML BAG IV ONE ×2 (19:06→19:10)
[2025-02-25] MEDS: guaiFENesin/Dextromethorphan 100-10 MG/5 ML Soln 10 ML Cup PO PRN (23:14)
[2025-02-26 06:30] LABS: MEAN PLATELET VOLUME 9.9 fL (9.4-12.4); NRBC ABSOLUTE 0.02 K/uL (0.00-0.02); NRBC PERCENT 1.6 /100WBC (0.0-0.2); PLATELET COUNT,PLT 215 K/uL (150-400); RED BLOOD CELL COUNT 3.16 M/uL (4.52-5.90); WHITE BLOOD CELL COUNT,WBC 1.26 K/uL (3.9-11.3)
[2025-02-26 07:12] LABS: A/G RATIO 0.8 (0.9-1.6); ALANINE AMINOTRANSFERASE,ALT 21.0 IU/L (14-63); ASPARTATE AMNIOTRANSFERASE,AST 13.0 IU/L (15-37); BILIRUBIN TOTAL 0.5 mg/dL (0.2-1.0); BLOOD UREA NITROGEN,BUN 22.0 mg/dL (7.0-18.0); CARBON DIOXIDE,CO2 32.5 mmol/L (21.0-32.0); CHLORIDE,CL 95.0 mmol/L (98-107); CREATININE 0.8 mg/dL (0.8-1.3); EST CRCL DRUG DOSING (CG) 88.75 mL/min; GLUCOSE RANDOM 120.0 mg/dL (74-106); POTASSIUM,K 3.9 mmol/L (3.5-5.1); PROTEIN TOTAL,TP 6.2 g/dL (6.4-8.2); SODIUM,NA 132.0 mmol/L (136-148)
[2025-02-26 07:32] LABS: ESTIMATED GFR 96.0 mL/min (>60)
[2025-02-26 08:30] LABS: BAND ABSOLUTE MAN 0.13; BAND PERCENT MAN 10 %; LYMPHOCYTES ABSOLUTE MAN 0.18 K/uL (1.00-4.80); LYMPHOCYTES PERCENT MAN 14 % (24-44); MONOCYTES ABSOLUTE MAN 0.11 K/uL (0.00-0.80); MONOCYTES PERCENT MAN 9 % (0-8); SEG NEUTROPHILS ABSOLUTE MAN 0.78 K/uL (1.80-7.70); SEG NEUTROPHILS PERCENT MAN 62 % (41-71)
[2025-02-26 08:31] LABS: EOSINOPHILS ABSOLUTE MAN 0.03 K/uL (0.00-0.45); EOSINOPHILS PERCENT MAN 2 % (0-6); METAMYELOCYTE ABSOLUTE MAN 0.04; METAMYELOCYTE PERCENT MAN 3 %
[2025-02-26] MEDS: Potassium Chloride 20 MEQ Tab.ER PO ONE (09:58)
[2025-02-26] MEDS: Metoprolol Succinate 100 MG Tab.ER PO SCH (10:00)
[2025-02-26] MEDS: Magnesium Sulfate 4 GM/100 mL 4 GM in Premix Bag 1 BAG IV ONE ×2 (10:03→13:14)
[2025-02-26] MEDS: Ipratropium 0.02% 0.5 MG/2.5 ML Neb Soln NEB SCH (12:38)
[2025-02-27 05:40] LABS: MEAN PLATELET VOLUME 9.9 fL (9.4-12.4); NRBC ABSOLUTE 0.00 K/uL (0.00-0.02); NRBC PERCENT 0.0 /100WBC (0.0-0.2); PLATELET COUNT,PLT 190 K/uL (150-400); RED BLOOD CELL COUNT 2.94 M/uL (4.52-5.90); WHITE BLOOD CELL COUNT,WBC 1.28 K/uL (3.9-11.3)
[2025-02-27 06:22] LABS: A/G RATIO 0.8 (0.9-1.6); ALANINE AMINOTRANSFERASE,ALT 17.0 IU/L (14-63); ASPARTATE AMNIOTRANSFERASE,AST 10.0 IU/L (15-37); BILIRUBIN TOTAL 0.7 mg/dL (0.2-1.0); BLOOD UREA NITROGEN,BUN 20.0 mg/dL (7.0-18.0); CARBON DIOXIDE,CO2 29.9 mmol/L (21.0-32.0); CHLORIDE,CL 94.0 mmol/L (98-107); CREATININE 0.8 mg/dL (0.8-1.3); EST CRCL DRUG DOSING (CG) 88.75 mL/min; GLUCOSE RANDOM 137.0 mg/dL (74-106); POTASSIUM,K 3.7 mmol/L (3.5-5.1); PROTEIN TOTAL,TP 5.9 g/dL (6.4-8.2); SODIUM,NA 130.0 mmol/L (136-148)
[2025-02-27 06:27] LABS: ESTIMATED GFR 96.0 mL/min (>60)
[2025-02-27 06:55] LABS: BAND ABSOLUTE MAN 0.09; BAND PERCENT MAN 7 %; LYMPHOCYTES ABSOLUTE MAN 0.13 K/uL (1.00-4.80); LYMPHOCYTES PERCENT MAN 10 % (24-44); MONOCYTES ABSOLUTE MAN 0.13 K/uL (0.00-0.80); MONOCYTES PERCENT MAN 10 % (0-8); SEG NEUTROPHILS ABSOLUTE MAN 0.93 K/uL (1.80-7.70); SEG NEUTROPHILS PERCENT MAN 73 % (41-71)
[2025-02-27] MEDS: Potassium Chloride 20 MEQ Tab.ER PO ONE (07:56)
[2025-02-27] MEDS: Magnesium Sulfate 2 GM/50 mL 2 GM in Premix Bag 1 BAG IV ONE (10:03)
[2025-02-27] MEDS: Furosemide 40 MG/4 ML VIAL IVPUSH SCH (10:03)
[2025-02-28 05:59] LABS: MEAN PLATELET VOLUME 9.9 fL (9.4-12.4); NRBC ABSOLUTE 0.00 K/uL (0.00-0.02); NRBC PERCENT 0.0 /100WBC (0.0-0.2); PLATELET COUNT,PLT 212 K/uL (150-400); RED BLOOD CELL COUNT 2.88 M/uL (4.52-5.90); WHITE BLOOD CELL COUNT,WBC 2.02 K/uL (3.9-11.3)
[2025-02-28 06:37] LABS: A/G RATIO 0.6 (0.9-1.6); ALANINE AMINOTRANSFERASE,ALT 20.0 IU/L (14-63); ASPARTATE AMNIOTRANSFERASE,AST 12.0 IU/L (15-37); BILIRUBIN TOTAL 0.5 mg/dL (0.2-1.0); BLOOD UREA NITROGEN,BUN 24.0 mg/dL (7.0-18.0); CARBON DIOXIDE,CO2 30.1 mmol/L (21.0-32.0); CHLORIDE,CL 95.0 mmol/L (98-107); CREATININE 0.9 mg/dL (0.8-1.3); EST CRCL DRUG DOSING (CG) 78.34 mL/min; GLUCOSE RANDOM 187.0 mg/dL (74-106); POTASSIUM,K 3.8 mmol/L (3.5-5.1); PROTEIN TOTAL,TP 6.1 g/dL (6.4-8.2); SODIUM,NA 131.0 mmol/L (136-148)
[2025-02-28 06:49] LABS: ESTIMATED GFR 92.0 mL/min (>60)
[2025-02-28 07:00] LABS: BAND ABSOLUTE MAN 0.16; BAND PERCENT MAN 8 %
[2025-02-28 07:03] LABS: LYMPHOCYTES ABSOLUTE MAN 0.16 K/uL (1.00-4.80); LYMPHOCYTES PERCENT MAN 8 % (24-44); MONOCYTES ABSOLUTE MAN 0.18 K/uL (0.00-0.80); MONOCYTES PERCENT MAN 9 % (0-8); SEG NEUTROPHILS ABSOLUTE MAN 1.52 K/uL (1.80-7.70); SEG NEUTROPHILS PERCENT MAN 75 % (41-71)
[2025-02-28] MEDS: Magnesium Sulfate 4 GM/100 mL 4 GM in Premix Bag 1 BAG IV ONE (08:31)
[2025-02-28] MEDS: Potassium Chloride 20 MEQ Tab.ER PO ONE ×2 (08:36→17:22)
[2025-02-28] MEDS: cefTRIAXone 1 GM in Water For Injection, Sterile 10 ML IVPUSH SCH (09:59)
[2025-02-28] MEDS: methylPREDNISolone Sodium Succinate 40 MG/1 ML SDV IVPUSH SCH (09:59)
[2025-02-28] MEDS: Codeine/guaiFENesin 10-100 MG/5 ML Syrup 5 ML Cup PO PRN (12:33)
[2025-02-28] MEDS: Furosemide 40 MG/4 ML VIAL IVPUSH ONE (14:40)
[2025-03-01 05:39] LABS: MEAN PLATELET VOLUME 9.8 fL (9.4-12.4); NRBC ABSOLUTE 0.00 K/uL (0.00-0.02); NRBC PERCENT 0.0 /100WBC (0.0-0.2); PLATELET COUNT,PLT 249 K/uL (150-400); RED BLOOD CELL COUNT 2.70 M/uL (4.52-5.90); WHITE BLOOD CELL COUNT,WBC 2.27 K/uL (3.9-11.3)
[2025-03-01 05:59] LABS: BLOOD UREA NITROGEN,BUN 31.0 mg/dL (7.0-18.0); CARBON DIOXIDE,CO2 30.3 mmol/L (21.0-32.0); CHLORIDE,CL 96.0 mmol/L (98-107); CREATININE 1.0 mg/dL (0.8-1.3); EST CRCL DRUG DOSING (CG) 70.45 mL/min; GLUCOSE RANDOM 223.0 mg/dL (74-106); PHOSPHORUS 2.5 mg/dL (2.6-4.7); POTASSIUM,K 5.1 mmol/L (3.5-5.1); SODIUM,NA 132.0 mmol/L (136-148)
[2025-03-01 06:08] LABS: ESTIMATED GFR 81.0 mL/min (>60)
[2025-03-01 06:12] LABS: BAND ABSOLUTE MAN 0.23; BAND PERCENT MAN 10 %; LYMPHOCYTES ABSOLUTE MAN 0.16 K/uL (1.00-4.80); LYMPHOCYTES PERCENT MAN 7 % (24-44); MONOCYTES ABSOLUTE MAN 0.30 K/uL (0.00-0.80); MONOCYTES PERCENT MAN 13 % (0-8); SEG NEUTROPHILS ABSOLUTE MAN 1.59 K/uL (1.80-7.70); SEG NEUTROPHILS PERCENT MAN 70 % (41-71)
[2025-03-01 12:14] VITALS: BP 127/70; PULSE 98
== END 2025-03-01 11:09 | disposition home health service (06) | DRG 291 ==
LOC: MW.ED 16:54 → MW.MS 19:45 → OBSVTOIN 02-23 09:42 → MW.ICU 02-23 11:21 → MW.MS 02-27 18:44
PROVIDERS: ADMIT Emergency Medicine; ATTEND Family Medicine
DX: C34.90 Malignant neoplasm of unspecified part of unspecified bronchus or lung (principal); I11.0 Hypertensive heart disease with heart failure; I50.23 Acute on chronic systolic (congestive) heart failure; I50.9 Heart failure, unspecified; C34.91 Malignant neoplasm of unspecified part of right bronchus or lung; E87.1 Hypo-osmolality and hyponatremia; J44.1 Chronic obstructive pulmonary disease with (acute) exacerbation; J96.11 Chronic respiratory failure with hypoxia; J98.11 Atelectasis; E87.3 Alkalosis; Z87.891 Personal history of nicotine dependence; I48.91 Unspecified atrial fibrillation; F41.9 Anxiety disorder, unspecified; J43.9 Emphysema, unspecified; E78.00 Pure hypercholesterolemia, unspecified; G89.29 Other chronic pain; E11.9 Type 2 diabetes mellitus without complications; I27.20 Pulmonary hypertension, unspecified; D64.9 Anemia, unspecified; I77.3 Arterial fibromuscular dysplasia; Z79.01 Long term (current) use of anticoagulants; Z99.81 Dependence on supplemental oxygen; Z79.82 Long term (current) use of aspirin; Z79.899 Other long term (current) drug therapy; Z79.1 Long term (current) use of non-steroidal anti-inflammatories (NSAID); Z87.01 Personal history of pneumonia (recurrent); Z98.49 Cataract extraction status, unspecified eye
CPT/HCPCS: 36415 ×2; 71045; 71250; 71275; 80053 ×2; 81001; 83605; 83690; 83735 ×2; 83880; 84484; 85025 ×2; 85610; 85730; 87040 ×2; 93005; 94640; 96365; 96375 ×2; 96376; 99285; A9270 ×10; G0378 ×3; J0616; J1938; J3475 ×2; J7040; Q9967; 71046; 71046-26; 80048; 84100; 93010; 94664; 94667; J0283; J0696; J1160; J2919; J3490; J7512; J7644

== ENCOUNTER 2025-03-20 12:44 | Inpatient (IN) | payer MEDICARE, OTHER ==
[2025-03-20 13:00] LABS: BICARBONATE,VENOUS 33.0 mEq/L (22-29); PCO2 VENOUS 44.0 mmHG (41-51); PH,VENOUS 7.48 (7.32-7.43); PO2 VENOUS 47.0 mmHG (35-45)
[2025-03-20 13:01] LABS: BASE EXCESS VENOUS 8.4 (-2.0-3.0)
[2025-03-20 13:06] LABS: MEAN PLATELET VOLUME 9.6 fL (9.4-12.4); NRBC ABSOLUTE 0.00 K/uL (0.00-0.02); NRBC PERCENT 0.0 /100WBC (0.0-0.2); PLATELET COUNT,PLT 267 K/uL (150-400); RED BLOOD CELL COUNT 2.62 M/uL (4.52-5.90); WHITE BLOOD CELL COUNT,WBC 10.64 K/uL (3.9-11.3)
[2025-03-20 13:19] LABS: BAND ABSOLUTE MAN 2.23; BAND PERCENT MAN 21 %; LYMPHOCYTES ABSOLUTE MAN 0.11 K/uL (1.00-4.80); LYMPHOCYTES PERCENT MAN 1 % (24-44); MONOCYTES ABSOLUTE MAN 0.21 K/uL (0.00-0.80); MONOCYTES PERCENT MAN 2 % (0-8); MYELOCYTE ABSOLUTE MAN 0.21; MYELOCYTE PERCENT MAN 2 %; SEG NEUTROPHILS ABSOLUTE MAN 7.87 K/uL (1.80-7.70); SEG NEUTROPHILS PERCENT MAN 74 % (41-71)
[2025-03-20] MEDS: cefTRIAXone 1 GM in Water For Injection, Sterile 10 ML IVPUSH ONE (13:23)
[2025-03-20 13:29] LABS: A/G RATIO 0.5 (0.9-1.6); ALANINE AMINOTRANSFERASE,ALT 23.0 IU/L (14-63); ASPARTATE AMNIOTRANSFERASE,AST 17.0 IU/L (15-37); BILIRUBIN TOTAL 0.3 mg/dL (0.2-1.0); BLOOD UREA NITROGEN,BUN 8.0 mg/dL (7.0-18.0); CARBON DIOXIDE,CO2 30.5 mmol/L (21.0-32.0); CHLORIDE,CL 93.0 mmol/L (98-107); CREATININE 0.8 mg/dL (0.8-1.3); EST CRCL DRUG DOSING (CG) 89.37 mL/min; GLUCOSE RANDOM 147.0 mg/dL (74-106); POTASSIUM,K 3.9 mmol/L (3.5-5.1); PRO B-TYPE NATRIUR PEPT,BNPPRO 2590.0 pg/mL (0-125); PROTEIN TOTAL,TP 5.7 g/dL (6.4-8.2); SODIUM,NA 132.0 mmol/L (136-148)
[2025-03-20 13:30] LABS: ESTIMATED GFR 96.0 mL/min (>60)
[2025-03-20] MEDS: Furosemide 40 MG/4 ML VIAL IVPUSH ONE (13:41)
[2025-03-20 14:08] LABS: CORONAVIRUS COVID-19 NAA NEGATIVE (NEGATIVE); INFLUENZA A NAA NEGATIVE (NEGATIVE); INFLUENZA B NAA NEGATIVE (NEGATIVE); RESPIRATORY SYNCYTIAL VIR NAA NEGATIVE (NEGATIVE)
[2025-03-20] MEDS: Magnesium Sulfate 2 GM/50 mL 2 GM in Premix Bag 1 BAG IV ONE (14:36)
[2025-03-20] MEDS: Iopamidol 755 Mg/ML 100 ML Bottle IVPUSH ONE (15:13)
[2025-03-20] MEDS ORDERED: [UNRECOGNIZED DRUG - OTHER] INH PRN ×2 (17:42→19:13)
[2025-03-20] MEDS ORDERED: FORMOTEROL FUMARATE INH PRN ×2 (17:42→19:13)
[2025-03-20] MEDS ORDERED: BUDESONIDE INH PRN ×2 (17:42→19:13)
[2025-03-20] MEDS ORDERED: Sodium Chloride 0.9% 10 ML Syringe FLUSH PRN (17:44)
[2025-03-20] MEDS ORDERED: Sodium Chloride 0.9% 2.5 ML Syringe FLUSH PRN (17:44)
[2025-03-20] MEDS: Amiodarone 150 MG/100 ML 150 MG in Premix Bag 1 BAG IV ONE (18:06)
[2025-03-20] MEDS: Amiodarone 360 MG/200 ML 360 MG/200 ML BAG IV ONE (18:33)
[2025-03-20] MEDS: Pantoprazole 40 MG in Sodium Chloride 0.9% 10 ML IVPUSH SCH (19:43)
[2025-03-20] MEDS: Furosemide 40 MG/4 ML VIAL IVPUSH SCH (19:59)
[2025-03-20] MEDS ORDERED: Acetaminophen/HYDROcodone 325-5 MG Tab PO PRN (20:04)
[2025-03-20] MEDS: Sennosides/Docusate Sodium 50-8.6 MG Tab PO PRN (21:08)
[2025-03-20] MEDS: Ondansetron 4 MG/2 ML SDV IVPUSH PRN (21:50)
[2025-03-20] MEDS ORDERED: BENZONATATE 200 MG PO SCH (22:00)
[2025-03-21] MEDS: Amiodarone 360 MG/200 ML 540 MG/300 ML BAG IV ONE (00:32)
[2025-03-21 05:45] LABS: MEAN PLATELET VOLUME 9.6 fL (9.4-12.4); NRBC ABSOLUTE 0.06 K/uL (0.00-0.02); NRBC PERCENT 0.7 /100WBC (0.0-0.2); PLATELET COUNT,PLT 254 K/uL (150-400); RED BLOOD CELL COUNT 2.28 M/uL (4.52-5.90); WHITE BLOOD CELL COUNT,WBC 8.34 K/uL (3.9-11.3)
[2025-03-21 06:13] LABS: A/G RATIO 0.6 (0.9-1.6); ALANINE AMINOTRANSFERASE,ALT 20.0 IU/L (14-63); ASPARTATE AMNIOTRANSFERASE,AST 16.0 IU/L (15-37); BILIRUBIN TOTAL 0.2 mg/dL (0.2-1.0); BLOOD UREA NITROGEN,BUN 11.0 mg/dL (7.0-18.0); CARBON DIOXIDE,CO2 31.4 mmol/L (21.0-32.0); CHLORIDE,CL 93.0 mmol/L (98-107); CREATININE 1.0 mg/dL (0.8-1.3); EST CRCL DRUG DOSING (CG) 70.51 mL/min; GLUCOSE RANDOM 160.0 mg/dL (74-106); PHOSPHORUS 4.4 mg/dL (2.6-4.7); POTASSIUM,K 3.6 mmol/L (3.5-5.1); PROTEIN TOTAL,TP 5.3 g/dL (6.4-8.2); SODIUM,NA 131.0 mmol/L (136-148)
[2025-03-21 06:17] LABS: BAND ABSOLUTE MAN 1.75; BAND PERCENT MAN 21 %; LYMPHOCYTES ABSOLUTE MAN 0.42 K/uL (1.00-4.80); LYMPHOCYTES PERCENT MAN 5 % (24-44); MONOCYTES ABSOLUTE MAN 0.67 K/uL (0.00-0.80); MONOCYTES PERCENT MAN 8 % (0-8); MYELOCYTE ABSOLUTE MAN 0.17; MYELOCYTE PERCENT MAN 2 %; SEG NEUTROPHILS ABSOLUTE MAN 5.34 K/uL (1.80-7.70); SEG NEUTROPHILS PERCENT MAN 64 % (41-71)
[2025-03-21 06:22] LABS: ESTIMATED GFR 81.0 mL/min (>60)
[2025-03-21] MEDS: Formoterol/Mometasone 200-5 MCG 8.8 GM Inhaler INH SCH (08:06)
[2025-03-21] MEDS ORDERED: 50% Dextrose in Water 50 ML Syringe IVPUSH PRN (08:15)
[2025-03-21] MEDS: Metoprolol Succinate 100 MG Tab.ER PO SCH (08:36)
[2025-03-21] MEDS: Diltiazem 180 MG Cap.CD PO SCH (08:36)
[2025-03-21] MEDS ORDERED: DILTIAZEM HCL 180 MG PO SCH (09:00)
[2025-03-21] MEDS ORDERED: Non-Formulary Medication 1 Each (Rosuvastatin 5 MG Tablet) PO SCH (09:00)
[2025-03-21] MEDS ORDERED: Naloxone 0.4 MG/ML SDV IVPUSH PRN (09:21)
[2025-03-21] MEDS: Magnesium Sulfate 4 GM/100 mL 4 GM in Premix Bag 1 BAG IV ONE (10:55)
[2025-03-21] MEDS: Potassium Chloride 20 MEQ Tab.ER PO ONE (10:55)
[2025-03-21] MEDS: Amiodarone 360 MG/200 ML 540 MG/300 ML BAG IV SCH (12:22)
[2025-03-21] MEDS ORDERED: LORazepam ORAL Concentrate 1MG/0.5ML U/D PO PRN (13:27)
[2025-03-21] MEDS: LORazepam 2 MG/ML SDV IVPUSH SCH (13:52)
[2025-03-21] MEDS ORDERED: Furosemide 40 MG/4 ML VIAL IVPUSH SCH (14:45)
[2025-03-21] MEDS: Atropine Sulfate 1% Ophth 2 ML Drops SL PRN (21:27)
[2025-03-22] MEDS: Scopalamine 1mg/3day Transdermal Patch TRDERM PRN (10:21)
[2025-03-22 19:55] VITALS: BP 131/84
[2025-03-23] MEDS: LORazepam 2 MG/ML SDV IVPUSH SCH (08:53)
[2025-03-23 09:20] VITALS: PULSE 138
== END 2025-03-23 15:48 | disposition expired | DRG 193 ==
LOC: MW.ED 12:44 → MW.MS 16:55 → MW.ICU 17:59 → MW.MS 03-21 17:50 → UNDODISIN 03-23 15:48
PROVIDERS: ADMIT Family Medicine; ATTEND Family Medicine
PROC: 3E03329 Introduction of Other Anti-infective into Peripheral Vein, Percutaneous Approach (ICD-10-PCS; principal; 2025-03-20)
PROC: 5A09357 Assistance with Respiratory Ventilation, Less than 24 Consecutive Hours, Continuous Positive Airway Pressure (ICD-10-PCS; 2025-03-20)
PROC: 5A0935A Assistance with Respiratory Ventilation, Less than 24 Consecutive Hours, High Flow/Velocity Cannula (ICD-10-PCS; 2025-03-21)
DX: R06.02 Shortness of breath (principal); J18.9 Pneumonia, unspecified organism; J96.01 Acute respiratory failure with hypoxia; J44.9 Chronic obstructive pulmonary disease, unspecified; J44.0 Chronic obstructive pulmonary disease with (acute) lower respiratory infection; C34.91 Malignant neoplasm of unspecified part of right bronchus or lung; Z66 Do not resuscitate; Z51.5 Encounter for palliative care; I11.0 Hypertensive heart disease with heart failure; I50.9 Heart failure, unspecified; M54.9 Dorsalgia, unspecified; I48.91 Unspecified atrial fibrillation; J43.9 Emphysema, unspecified; E78.00 Pure hypercholesterolemia, unspecified; G89.29 Other chronic pain; E11.9 Type 2 diabetes mellitus without complications; Z98.49 Cataract extraction status, unspecified eye; Z79.82 Long term (current) use of aspirin; Z79.01 Long term (current) use of anticoagulants; Z79.1 Long term (current) use of non-steroidal anti-inflammatories (NSAID); Z79.891 Long term (current) use of opiate analgesic; Z79.899 Other long term (current) drug therapy; Z92.21 Personal history of antineoplastic chemotherapy; Z87.891 Personal history of nicotine dependence
CPT/HCPCS: 36415; 71045; 71275; 80053; 82803; 83605; 83735; 83880; 84484; 85025; 87637; 93005; 94640; 96365; 96367; 96375; 99285; A9270; J0456; J0696; J1938; J3475; J7050; Q9967; 36591; 77336; 77427; 80202; 82947; 84100; 84439; 84443; 87040; 87070; 87077; 87186; 87205; 87641; 93010; 96360; 96374; 96413; 99215; 99223; 99233; 99238; 99284; A4216; J0283; J0692; J1100; J1271; J1642; J1815-GY; J2060; J2270; J2405; J2470; J3374; J3490; J7030; J7060; J7512; J7612-GY; J9173; J9264; Q0138